=== PATIENT | female | born 1945 | race Caucasian/White ===

== ENCOUNTER 2025-01-01 08:46 | Outpatient (AMB) | payer MEDICARE, MEDICAID, SELFPAY ==
--- NOTE | 2025-01-01 08:56 | MHC.OFFVIS ---
Vital Signs 01/01/25 08:58 Height 5 ft 2 in Weight 150 lb BMI 27.4 BP 116/70 Blood Pressure Location Rt brachial Position Sitting Respiration 16 Pulse 79 Pulse Oximetry (%) 96 Intake Visit Reasons: Memory Issues Accompanied by: Friend Allergies No Known Allergies Allergy (Verified 01/01/25 08:56) Medication List - Last Reconciled 01/01/25 by Michelle Ruiz, PATT chlorthalidone 12.5 mg PO DAILY losartan 50 mg PO DAILY lovastatin 20 mg PO BEDTIME sertraline 25 mg PO DAILY HPI Comments Details: Heidi is a 79-year-old female patient with a past medical history of hyperlipidemia, hypertension, and pulmonary embolism (no longer on anticoagulation) who is being evaluated today for memory concerns. She has accompanied today by her friend Rigo. Heidi reports that she noticed her memory starting to change approximately 5 months ago. Rigo also agrees that over the course of this general time frame, she has been much more forgetful. She gives the example of forgetting upcoming appointments and forgetting where she puts objects. She recently had an MRI at [facility] performed 11/02/2024. The MRI report reflects that there are no acute infarct, mass effect, or intracranial hemorrhage. There was no notable pattern of cerebral volume loss to suggest a specific neurodegenerative process.There is mentioned of mild chronic small-vessel ischemic changes throughout the supratentorial white matter. I do not see any other diagnostics/workup available for review in the referral paperwork. 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 Tobacco: None, never Etoh: None Substance use: None Memory evaluation: Onset of memory changes: Approximately 5 months Rate of progression: Rapid Cognitive: Difficulty remembering upcoming events:Yes, she uses a calendar to help with this Getting lost: No Difficulty keeping track of time: No Difficulty finding appropriate words:No Difficulty making decisions or problem-solving:No Functional: Difficulty writing checks, paying bills: Very little difficulty Difficulty driving a car:No Difficulty shopping alone:No Difficulty performing household tasks:No Difficulty managing own medications:No Difficulty pursuing hobbies/leisure activities:Puzzles. No difficulty Change in gait:No Social activities: Difficulty holding conversation:No Decreased social activity with family/friends:No Less cooperative:No Less aware of others feeling/her full:No Less concerned about bathing/dressing/grooming:No Behavioral: Sad, depressed:Sometimes Anxious, worried:Does feel anxious at times Inpatient, fidgety:No Acts impulsively, disinhibited:No Change appetite or weight: No Change in sleep pattern, daytime fatigue: No, she sleeps about 7-8hrs per night and feels rested in the morning Hallucinations:No PFSH Medical History (Updated 01/01/25 @ 15:17 by Michelle Ruiz CNP) History of anal cancer HLD (hyperlipidemia) Hypertension Memory changes Social History (Updated 01/01/25 @ 08:56 by Judah Austin [facility]) Alcohol intake: never Patient Tobacco Use Status: Never used Tobacco Review of Systems Const Reports as per HPI Physical Exam Exam Exam: MOCA: MOCA total: Executive:07/22 Namin/3 Attention:09/22 Language:04/21 Abstraction:05/21 Delayed recall:04/23 Orientation:09/22 Vital Signs: Last Vital Signs Pulse 79 01/01/25 08:58 Resp 16 01/01/25 08:58 BP 116/70 01/01/25 08:58 Pulse Ox 96 01/01/25 08:58 BMI result Body Mass Index 27.4 Const General: cooperative, healthy appearing, comfortable and no acute distress Nutritional Appearance: average body habitus Orientation/consciousness: oriented to person, oriented to place and oriented to time HEENT Head: Yes normal to inspection Neuro General: oriented to person, oriented to place and oriented to time Cranial nerves: Yes CN's II-XII intact bilaterally Cognition (Neuro): normal cognition Gait exam (Neuro): Normal gait present Motor exam (neuro): 5/5 motor strength present throughout Sensory Exam: double simultaneous stimulation for sensation normal Deep tendon reflexes (DTR's): Rt Biceps (C5, C6): 2+, Left biceps reflex intensity grade: 2+, Right brachioradialis reflex intensity grade: 2+, Left brachioradialis reflex intensity grade: 2+, Right patellar reflex intensity grade: 2+ and Left patellar reflex intensity grade: 2+ Coordination: [id number] test normal Assessment & Plan Assessment & Plan (1) Memory changes: Code(s): R41.3 - Other amnesia Category: Medical Plan: . Omi Heidi is a 79-year-old female patient with a past medical history of hyperlipidemia, hypertension, and pulmonary embolism (no longer on anticoagulation) who is being evaluated today for memory concerns. Memory changes have been notable over the course of the last 5 months. She has no known family history of dementia that she is aware of. Her preliminary workup included an MRI of the brain which showed some mild white matter disease but did not show any significant patterns of atrophy to suggest a neurodegenerative process. While neurodegenerative processes can not fully be excluded, based on her [place] scoring and history, I think it would be reasonable to have her perform an amyloid PET scan. We should 1st however rule out any other reversible cause for memory changes. I have ordered a B12 and TSH level. If these levels returned normal, the next step would be to perform an amyloid PET scan. The patient is aware of this plan and agrees. -labs: TSH level, B12 level -Next step includes amyloid PET scan if labs are within normal range -Follow-up in approximately 2 months after diagnostic testing has been completed Orders: Orders TSH reflex Free T4 Today R41.3 - Other amnesia Vitamin B12 Today R41.3 - Other amnesia Coding Level of Care Code New Pt Level 4 (31967) Diagnoses Memory changes R41.3
[2025-01-01 08:58] VITALS: BP 116/70; PULSE 79; RESP 16; O2SAT 96; BMI 27.4
--- OUTSIDE RECORDS SUMMARY | 2025-01-01 10:02 | XMS_ITS ---
Author Name [facility] Organization Unknown Care Team Organization Name Specialty Phone Email Start Date End Da te [facility] ACO 12/06/2024 [facility] Sherrie Sosa Primary Care 12/24/2022 12/06/2023 [facility] Lacey Garcia MD Primary Care 09/25/2022 12/06/2023 [facility] Termed, PROVIDER Primary Care 02/24/202211/17
--- OUTSIDE RECORDS SUMMARY | 2025-01-01 10:02 | XMS_ITS | Patient Health Record ---
Author Organization [facility] Address [address] [place] [address] Care Team Providers Care Summer Nanny Name Role Phone Lacey Garcia Primary Care Provider Unavaila ble Allergies Allergen (clinical drug ingredient) Drug/Non Drug Allergy documented on EMR Reaction Allergy Type Onset Date Status N.K.D.A (uncoded) Unknown Allergy Ac tive Reason For Referral No Information Medications Medication SIG (Take, Route, Frequency, Duration) Notes Start Date End Date Status Ketoconazole 2 % apply to affected toenail Externally Once a day; Duration: 30 days 08/28/2021 Active Calcium + D daily Not-Taki ng Lovastatin 20 MG 1 tablet with the evening meal Orally Once a day Active Chlorthalidone 25 MG 0.5 tablet in the morning with food Orally Once a day Active Tinactin 1 % 1 application Externally Once a day; Duration: 30 days Active Losartan Potassium 50 MG 1 tablet Orally Once a day Active Fish Oil 1000 MG 1 capsule Orally Twi ce a day Active Viactiv Active Imodium Multi-Symptom Relief 2-125 MG as directed Orally prn Active Probiotic - as directed Orally Active Problems Problem Type SNOMED Code ICD Code Onset Dates Problem Status W/U Status Risk Notes Problem Diabetic renal disease (082700398) Type 2 diabetes mellitus with diabetic chronic kidney disease (E11.22) Active confirmed Problem Acquired hallux rigidus (7953054) Hallux rigidus, right foot (M20.21) Active confirmed Problem Acquired hallux rigidus (4774339) Hallux rigidus, left foot (M20.22) Active confirmed Problem Chronic kidney disease stage 2 (034964923) Chronic kidney disease, stage 2 (mild) (N18.2) Active confirmed Plan Of Treatment No Information Insurance Providers Payer Name Payer Address Payer Phone Subscriber Number Group Number Insured Name Patient Relationship to Insured Coverage Start Date Coverage End Date Medicare of [place] [address] [place] [phone] [id number] Heidi Whitman Self - patient is the insured [employer] [address] [place] [phone] [id number] Heidi Whitman Self - patient is the insured Medical (General) History Medical History History ICD Code diabetes mellitus 2 with renal manifesta tions phlebitis deviated septum breast mass left shoulder pain history of anal cancer nehprolithiasis herniated lumbar intervertebral disc radiculopathy osteopenia utuerine bleeding dyspepsia microalbuminuria hyperlipidemia reactive airway disease pulmonary nodule adjustment disorder history of basal cell carcinoma essential hypertension diverticulosis tubular adenoma of colon varicose veins with pain Surgical History Surgery Date(Month/Year) anal cancer rotated cuff surgery implant left butt cheek 1962 1963 1965 Hospitalization History Reason Date(Month/Year) (boy) 1965 (boy) 1963 (boy) 1962
--- OUTSIDE RECORDS SUMMARY | 2025-01-01 10:02 | XMS_ITS | Clinical Summary ---
Author Organization [facility] [address] [place] [address] [place] [phone] Phone Care Team Providers Care Day Care Aide Name Role Phone Lacey Garcia MD Primary Care Provider Allergies No known active allergies Medications albuterol HFA (PROAIR HFA ; PROVENTIL HFA ; VENTOLIN HFA) 90 mcg/actuation inhaler Inhale 2 puffs by mouth. 02/15/20 24 Active cholecalciferol (VITAMIN D-3) 50 mcg (2,000 unit) capsule Take 1 capsule (2,000 Units total) by mouth 1 (one) time each day. 02/11/20 24 Active omega-3 acid ethyl esters (LOVAZA) 1 gram capsule Take 1 capsule (1 g total) by mouth 2 (two) times a day. Active L.acidoph,plant -B.animal,long (Probiotic Acidophilus Beads) 2 billion cell capsule Take 1 capsule by mouth 1 (one) time each day. 08/19/19 22 Active loperamide (IMODIUM) 2 mg capsule Take 1 capsule (2 mg total) by mouth 4 (four) times a day if needed for diarrhea. 08/19/19 22 Active inhalational spacing device (BreatheRite Valved MDI Chamber) inhaler 1 Device by Other route 1 (one) time if needed (with inhalers). 01/11/20 24 Active Advair HFA 45-21 mcg/actuation inhalerIndicati ons:Mild intermittent asthma, uncomplicated,C hronic obstructive pulmonary disease, unspecified (CMS/HCC V24, CMS/HCC V28) Inhale 1 puff by mouth 2 (two) times a day. Rinse mouth with water after use to reduce aftertaste and incidence of candidiasis. Do not swallow. 12 each 5 09/12/19 25 2024 Active naproxen (NAPROSYN) 500 mg tablet TAKE 1 TABLET BY MOUTH TWICE A DAY WITH MEALS 60 tablet 10/28/19 Active Additional Information Patient not taking.Reported on 12/07/2024 lidocaine (LIDODERM) 5 % patchIndication s:Sciatica of right side Apply 1 patch topically 1 (one) time each day. Remove & discard patch within 12 hours or as directed by MD. 30 each 12/16/19 25 2024 Active diclofenac (VOLTAREN) 1 % topical gel Apply 4 g topically 2 (two) times a day. 200 g 12/16/19 25 Active chlorthalidone (HYGROTON) 25 mg tabletIndicatio ns:Essential (primary) hypertension TAKE 1/2 TABLET BY MOUTH DAILY 45 tablet 12/23/19 25 Active lovastatin (MEVACOR) 20 mg tablet TAKE 1 TABLET BY MOUTH EVERYDAY AT BEDTIME 90 tablet 12/23/19 25 Active losartan (COZAAR) 50 mg tablet TAKE 1 TABLET BY MOUTH EVERY DAY 90 tablet 12/23/19 25 Active sertraline (ZOLOFT) 25 mg tablet Take 1 tablet (25 mg total) by mouth 1 (one) time each day. 90 tablet 12/23/19 25 2024 Active chlorthalidone (HYGROTON) 25 mg tabletIndicatio ns:Essential (primary) hypertension TAKE 1/2 TABLET BY MOUTH DAILY 45 tablet 09/22/19 25 2024 Discontinued lovastatin (MEVACOR) 20 mg tablet TAKE 1 TABLET BY MOUTH EVERYDAY AT BEDTIME 90 tablet 09/22/19 25 2024 Discontinued losartan (COZAAR) 50 mg tablet Take 1 tablet (50 mg total) by mouth 1 (one) time each day. 90 tablet 09/22/19 25 2024 Discontinued sertraline (ZOLOFT) 25 mg tablet Take 1 tablet (25 mg total) by mouth 1 (one) time each day. 30 each 3 09/26/19 25 2024 Discontinued(R eorder) Active Problems Problem Noted Date Diagnosed Date Full code status 10/30/2024 Hyperlipidemia 08/09/2024 Benign hypertension 08/09/2024 History of pulmonary embolus (PE) 08/09/2024 Encounters Date Type Department Care Team Description 12/15/2024 5:11 PM EDT - 12/16/2024 2:[address] [facility] [address] [place] [phone] Jordan Alexander MD Goebel, Mathew, MD Muhoozi, Bannet, MD Sciatica of right side Discharge Disposition: Home or Self Care 12/14/2024 Telephone Adult Medicine [address] [phone] Lacey Garcia MD 12/07/2024 8:00 AM EDT Office Visit Adult [address] [phone] Pantera Valdes PA Skin mole (Primary Dx); Skin lesion; Benign hypertension 11/29/2024 11:36 AM EDT - 11/29/2024 11:49 AM EDT [address] [phone] Kleber Nolan MD Right hip pain (Primary Dx) Discharge Disposition: Home or Self Care 11/20/2024 10:15 AM EDT Office Visit Orthopedic Surgery [facility] [address] [place] [phone] Rogers Lance, DPM Chronic gout of left foot, unspecified cause (Primary Dx); Dermatophytosis of nail; Arthritis of left ankle; Follow-up exam 11/12/2024 8:50 PM EDT - 11/12/2024 9:[address] [facility] [address] [place] [phone] Abrasion of right cornea, initial encounter (Primary Dx) Discharge Disposition: Home or Self Care 11/02/2024 9:40 AM EDT - 11/02/2024 11:59 PM EDT Hospital Encounter [facility] MRI [address] [place] [phone] Mild cognitive impairment; Benign hypertension; Hyperlipidemia, unspecified hyperlipidemia type; Anxiety Discharge Disposition: Home or Self Care 10/30/2024 10:00 AM EDT Office Visit Adult Medicine [facility] [address] [place] [phone] Lacey Garcia MD Mild cognitive impairment (Primary Dx); Benign hypertension; Hyperlipidemia, unspecified hyperlipidemia type; Anxiety; Full code status; Advance care planning 10/23/2024 Telephone Adult [facility] [address] [place] [phone] Lacey Garcia MD 10/03/2024 1:45 PM EDT Office Visit Orthopedic Surgery - [place] [address] [facility] [address] [place] [phone] Rogers Lance DPM Chronic gout of left foot, unspecified cause (Primary Dx); Arthritis of left ankle; Dermatophytosis of nail; Difficulty walking; Primary osteoarthritis of both feet; Pain in toe of left foot; Pain in toe of right foot from Last 3 Months Immunizations Name Administration Dates Next Due Influenza Quadravalent, 0.5m l (Fluzone High-dose) 65yo and older 01/20/2024,02/04/2023 Influenza Quadravalent, MDCK , 0.5ml, with preservative (Flucelvax) 6mo and older 02/28/2017 Influenza trivalent, 0.5mL ( Fluzone High-dose) 65yo and older 01/20/2024,02/02/2022,01/22/2021,01/24,01/18/2019,01/17/2018,01/14/2016 Influenza trivalent, with pr eservative (Fluzone; Afluria) 6mo and older 02/03/2015,01/26/2014,03/10/2013,01/26 Moderna SARS-CoV-2 COVID-19, mRNA, LNP-S, preservative free 02/10/2021 Pneumococcal conjugate 13 va lent (Prevnar 13, PCV13) 2mo and older 06/17/2015 Pneumococcal conjugate 20 va lent (Prevnar 20, PCV 20) 2mo and older 05/25/2023 Pneumococcal polysaccharide 23 valent (Pneumovax 23) 2yo and older 12/02/2012,01/26/2010 RSV, bivalent, protein subun it RSVpreF, 0.5mL, Preservative Free (Arexvy) 60yo and older 12/12/2022 Tdap Tetanus diptheria acell ular pertussis (Boostrix; Adacel) 7yo and older 10/08/2023,11/30/2012,12/28/2011 Zoster Live 11/30/2012,12/28/2011 Zoster recombinant (Shingrix ) 19yo and older 03/25/2023,01/09/2023 Surgical History Surgery Date Site/Laterality Comments OTHER SURGICAL HISTORY PROCEDURE: MOHS' CHEMOSURGERY, ADD'L SPECIMENS; COMMENT: hx BCC, nose. OTHER SURGICAL HISTORY Bilateral PROCEDURE: HISTORY OTHER; COMMENT: TopVisibleTRONIC sacral implant- ok to have MRI but needs to have battery shut off Medical History Medical History Date Comments Phlebitis 06/02/2012 DX:Phlebitis Deviated septum 06/02/2012 DX:Deviated sept um Nephrolithiasis 06/02/2012 DX:Nephrolithias is Herniated lumbar intervertebral disc 06/02/2012 DX:Herniated lumbar intervertebral disc Osteopenia 08/30/2012 DX:Osteopenia Uterine bleeding 08/30/2012 DX:Uterine blee ding Dyspepsia 11/30/2012 DX:Dyspepsia Hyperlipidemia 06/12/2013 DX:Hyperlipidemi a Reactive airway disease 09/12/2013 DX:React louisa airway disease Hematuria 07/29/2016 DX:Hematuria Pulmonary nodule 08/26/2016 DX:Pulmonary no dule Essential hypertension 12/06/2017 DX:Essent ial hypertension Colon, diverticulosis 01/17/2018 DX:Colon, diverticulosis Microalbuminuria 11/24/2018 DX:Microalbumin uria Type 2 diabetes mellitus wit h renal manifestations (CMS/HCC V24, CMS/HCC V28) 06/02/2012 DX: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) History of anal cancer 06/02/2012 DX:Histor y of anal cancer Varicose veins with pain 02/21/2018 DX:Vari cose veins with pain History of basal cell carcinoma (BCC) 07/07/2017 DX:History of basal cell carcinoma (BCC); COMMENT: Tip of nose - nodular - [facility] upper chest - nodular - [facility] Family History Medical History Relation Name Comments Heart attack Brother 1 Stomach cancer Brother 2 skin ca Diabetes Son Relation Name Status Comments Brother 1 Brother 2 Son Social History Tobacco Use Types Packs/Day Years Used Date Smoking Tobacco: Never Smokeless Tobacco: Never Tobacco Cessation:Counseling Given: Not Answered Alcohol Use Standard Drinks/Week Comments No 0 (1 standard drink = 0.6 oz pur e alcohol) Comments No Sex and Gender Information Value Date Recorded Sex Assigned at Not on file Legal Sex Female 10:44 AM EST Gender Identity Not on file Sexual Orientation Not on file Obstetrics History Last Filed Vital Signs Vital Sign Reading Time Taken Comments Blood Pressure 123/61 12/16/2024 6:34 AM EDT Pulse 62 12/16/2024 6:34 AM EDT Temperature 36.7 C (98.1 F) 12/16/2024 6:34 AM EDT Respiratory Rate 18 12/16/2024 6:34 AM EDT Oxygen Saturation 96% 12/16/2024 6:34 AM EDT Inhaled Oxygen Concentration - - Weight 68 kg (150 lb) 12/15/2024 5:15 PM EDT Height 160 cm (5' 3 ) 12/15/2024 5:15 PM EDT Body Mass Index 26.57 12/15/2024 5:15 PM EDT Plan of Treatment Upcoming Encounters Date Type Department Care Team (Late st Contact Info) Description 01/17/2025 10:30 AM EDT Evaluation [facility] [address] [facility] [address] [place] [phone] Felix Dye, ZULLY 01/24/2025 9:30 AM EDT Office Visit Orthopedic Surgery - [place] 250 [address] [facility] 250 [place] [phone] Rogers Lance DPM 175 [facility] 250 [place] [phone] 03/05/2025 10:30 AM EST Office Visit Adult Medicine - [place] 230 [place] [phone] Pantera Valdes PA 230 [place] [address] 03/12/2025 11:00 AM EST Office Visit Pulmonolgy [facility] [address] [place] [phone] Sherrie Sosa NP [address] [place] [phone] Health Maintenance Due Date Last Done Comments Diabetes: Annual Foot Exam 1955 Diabetes: Annual Retina Eye Exam 1955 Cervical Cancer Screening: HPV 1966 Cholesterol Screening (Lipid Panel) 03/28/2022 Colorectal Cancer Screening: Colonoscopy 03/28/2022 Falls Risk Assessment 03/28/2022 Hepatitis C Screening 03/28/2022 Medicare Annual Wellness Visit 03/28/2022 Osteoporosis Screening (Bone Density Screening) 03/28/2022 Social Influencers of Health Screening 03/28/2022 Diabetes: Annual Urine Albumin-Creatinine Ratio (uACR) 03/01/2024 Diabetes: Blood Sugar Control Test (HGBA1C) 03/01/2024 Depression Screening 04/19/2024 COVID-19 Vaccine (7 - Moderna risk season) 2024 01/20/2024, 02/18/2022, 07/25/2021, Additional history exists Influenza Vaccine (#1) 2024 , 01/20/2024, 02/04/2023, Additional history exists Diabetes: Annual GFR (Glomerular Filtration Rate) 12/15/2025 12/15/2024, 08/26/2024 Hypertension/CHF/CAD Annual BMP Blood Test 12/15/2025 12/15/2024, 08/26/2024 DTaP,Tdap,and Td Vaccines (4 - Td or Tdap) 10/07/2033 10/08/2023, 11/30/2012, 12/28/2011 RSV Immunization Adult Patients Completed 12/12/2022 Zoster Vaccines Completed 03/25/2023, 12/19, 11/30/2012, Additional history exists Pneumococcal Vaccine: 50+ Years Completed 05/25/2023, 06/17/2015, 12/02/2012, Additional history exists HIB Vaccines Aged Out No longer eligi ble based on patient's age to complete this topic HPV Vaccines Aged Out No longer eligi ble based on patient's age to complete this topic Hepatitis A Vaccines Aged Out No long er eligible based on patient's age to complete this topic Hepatitis B Vaccines Aged Out No long er eligible based on patient's age to complete this topic IPV Vaccines Aged Out No longer eligi ble based on patient's age to complete this topic MMR Vaccines Aged Out No longer eligi ble based on patient's age to complete this topic Meningococcal ACWY Vaccine Aged Out N o longer eligible based on patient's age to complete this topic Meningococcal B Vaccine Aged Out No l onger eligible based on patient's age to complete this topic RSV Immunization Patients Under 20 months Aged Out No longer eligible based on patient's age to complete this topic Varicella Vaccines Aged Out No longer eligible based on patient's age to complete this topic Procedures Procedure Name Priority Date/Time Associated Diagnosis Comments CBC WITH AUTO DIFFERENTIAL STAT 12/15/2024 10:11 PM EDT COMPREHENSIVE METABOLIC PANEL STAT 12/15/2024 10:11 PM EDT CBC AND DIFFERENTIAL STAT 12/15/2024 10:11 PM EDT XR HIP 2-3 VIEWS RIGHT STAT 12/15/2024 7:[address] LUMBAR SPINE WO CONTRAST STAT 12/15/2024 7:34 PM EDT XR HIP 2-3 VIEWS RIGHT STAT 11/29/2024 10:36 AM EDT XR FOOT 3+ VIEWS LEFT Routine 11/20/2024 10:22 AM EDT Follow-up exam MR BRAIN WO CONTRAST Routine 11/02/2024 11:39 AM EDT Mild cognitive impairment Benign hypertension Hyperlipidemia, unspecified hyperlipidemia type Anxiety INJECTION TENDON OR LIGAMENT Routine 10/03/2024 1:45 PM EDT Chronic gout of left foot, unspecified cause from Last 3 Months Results * (ABNORMAL) CBC auto differential (12/15/2024 10:11 PM EDT) WBC 6.9 4.8 - 10.8 K/mcL LAB H[facility] RBC 3.60(L) 3.80 - 4.80 M/mcL LAB HEMETOLOGY METHOD [facility] Hemoglobin 10.5(L) 11.5 - 16.0 g/dL LAB HEMETOLOGY METHOD 12/15/2024 10:21 PM [facility] Hematocrit 31.7(L) 35.0 - 47.0 % LAB HEMETOLOGY METHOD 12/15/2024 10[facility] MCV 88.3 79.0 - 98.0 FL LAB HEMETOLOGY METHOD 12/15/2024 10[facility] MCH 29.2 27.0 - 32.0 pcg LAB HEMETOLOGY METHOD 12/15/2024 10:21 PM [facility] MCHC 33.1 32.0 - 37.0 g/dL LAB HEMETOLOGY METHOD 12/15/2024 10:21 PM [facility] RDW 12.9 11.0 - 15.0 % LAB HEMETOLOGY METHOD 12/15/2024 10:[facility] Platelets 205 130 - 400 K/mcL LAB HEMETOLOGY METHOD 12/15/2024 10:21 PM [facility] MPV 9.9 7.0 - 11.0 FL LAB HEMETOLOGY METHOD 12/15/2024 10:21 PM [facility] NRBC 0.0 <1.0 % LAB HEMETOLOGY METHOD 12/15/2024 10:21 PM [facility] NRBC Absolute 0.00 <0.10 K/mcL LAB HEMETOLOGY METHOD 12/15/2024 10:21 PM [facility] Neutrophils Relative 61.6 % LAB HEMETOLOGY METHOD 12/15/2024 10:21 PM [facility] Lymphocytes Relative 25.5 % LAB HEMETOLOGY METHOD 12/15/2024 10:21 PM [facility] Monocytes Relative 9.6 % LAB HEMETOLOGY METHOD 12/15/2024 10:21 PM [facility] Eosinophils Relative 2.3 % LAB HEMETOLOGY METHOD 12/15/2024 10:21 PM [facility] Basophils Relative 0.6 % LAB HEMETOLOGY METHOD 12/15/2024 10:21 PM [facility] Immature Granulocytes Relative 0.4 % LAB HEMETOLOGY METHOD 12/15/2024 10:21 PM [facility] Neutrophils Absolute 4.26 1.50 - 7.00 K/mcL LAB HEMETOLOGY METHOD 12/15/2024 10:21 PM [facility] Lymphocytes Absolute 1.76 1.00 - 5.00 K/mcL LAB HEMETOLOGY METHOD 12/15/2024 10:21 PM [facility] Monocytes Absolute 0.66 0.20 - 1.00 K/mcL LAB HEMETOLOGY METHOD 12/15/2024 10:21 PM [facility] Eosinophils Absolute 0.16 0.00 - 0.50 K/mcL LAB HEMETOLOGY METHOD 12/15/2024 10:21 PM [facility] Basophils Absolute 0.04 0.00 - 0.20 K/mcL LAB HEMETOLOGY METHOD 12/15/2024 10:21 PM T [facility] Immature Granulocytes Absolute 0.03 0.00 - 0.03 K/mcL LAB HEMETOLOGY METHOD 12/15/2024 10:21 PM [facility] Blood Venous blood specimen / Unknown Venipuncture / Unknown 12/15/2024 10:11 PM EDT 12/15/2024 10:16 PM EDT us Jordan Alexander MD LAB BLOOD ORDERABLES Final Result [facility] [address] [place] [address], * (ABNORMAL) Comprehensive Metabolic Panel (CMP) (12/15/2024 10:11 PM EDT) Sodium 141 133 - 145 mmol/L LAB CHEMISTRY METHOD 12/15/2024 10:39 PM [facility] Potassium 3.4(L) 3.5 - 5.5 mmol/L LAB CHEMISTRY METHOD 12/15/2024 10:39 PM [facility] Chloride 109 96 - 110 mmol/L LAB CHEMISTRY METHOD 12/15/2024 10:39 PM [facility] CO2 27 21 - 32 mmol/L LAB CHEMISTRY METHOD 12/15/2024 10:39 PM [facility] Anion Gap 5 3 - 11 LAB CHEMISTRY METHOD 12/15/2024 10:39 PM [facility] Glucose 109(H) 70 - 100 mg/dL LAB CHEMISTRY METHOD 12/15/2024 10:39 PM [facility] BUN 15 5 - 25 mg/dL LAB CHEMISTRY METHOD 12/15/2024 10:39 PM [facility] Creatinine 0.60 0.50 - 1.10 mg/dL LAB CHEMISTRY METHOD 12/15/2024 10:39 PM [facility] eGFR 91 >=60 mL/min/1. 73m2 LAB CHEMISTRY METHOD 12/15/2024 10:39 PM [facility] Comment:Calculation based on the Chronic Kidney Disease Epidemiology Collaboration (CKD-EPI) equation refit without adjustment for race. BUN/Creatinine Ratio 25.0 LAB CHEMISTRY METHOD 12/15/2024 10:39 PM [facility] Calcium 8.4(L) 8.5 - 10.5 mg/dL LAB CHEMISTRY METHOD 12/15/2024 10:39 PM [facility] AST (SGOT) 16 10 - 42 unit/L LAB CHEMISTRY METHOD 12/15/2024 10:39 PM [facility] ALT (SGPT) 14 10 - 60 unit/L LAB CHEMISTRY METHOD 12/15/2024 10:39 PM [facility] Alkaline Phosphatase 74 42 - 121 unit/L LAB CHEMISTRY METHOD 12/15/2024 10:39 PM [facility] Total Protein 6.3 6.0 - 8.0 g/dL LAB CHEMISTRY METHOD 12/15/2024 10:39 PM [facility] Albumin 3.1(L) 3.2 - 5.0 g/dL LAB CHEMISTRY METHOD 12/15/2024 10:39 PM [facility] Total Bilirubin 0.4 0.0 - 1.4 mg/dL LAB CHEMISTRY METHOD 12/15/2024 10:39 PM [facility] Blood Venous blood specimen / Unknown Venipuncture / Unknown 12/15/2024 10:11 PM EDT 12/15/2024 10:16 PM EDT us Jordan Alexander MD LAB BLOOD ORDERABLES Final Result [facility] [address] [place] [address], * XR Hip 2-3 Views Right (12/15/2024 7:48 PM EDT) Only the most recent of2 resultswithin the time period is included. Anatomical Region Laterality Modality Lower Extremities, Hip Right Radiograp hic Imaging 12/16/2024 8:48 AM EDT Impressions 12/16/2024 8:52 AM EDT No acute fracture or subluxation. If the patient has persistent unexplained symptoms MRI or radionuclide bone scanning may be of some value. -------- FINAL REPORT -------- Dictated By: Madi Elias Dictated Date: 12/16/2024 08:48 ET Assigned Physician: Madi Elias Reviewed and Electronically Signed By: Madi Elias Signed Date: 12/16/2024 08:52 ET Workstation ID: [id number] Transcribed By: Self Edit Transcribed Date: 12/16/2024 08:48 ET Narrative 12/16/2024 8:52 AM EDT EXAMINATION: PELVIS RIGHT HIP CLINICAL INFORMATION: Pain. COMPARISON: 11/29/24 TECHNIQUE: Frontal view of the pelvis 2 views right hip FINDINGS: A power generator projects over the lower quadrant with a lead projecting through the region of one of the sacral neural foramina. No disruption of the SI joints, hips or symphysis. No acute pelvic fracture demonstrated. No suspicious pelvic mass or collection. Ossification adjacent to the left ischial tuberosity is unchanged and is likely related to remote injury. Right hip: The alignment is normal. No acute fracture. Femoral head contour is smooth. There are some degenerative changes with spurring of the greater trochanter. Procedure Note Madi Elias MD - 12/16/2024 EXAMINATION: PELVIS RIGHT HIP CLINICAL INFORMATION: Pain. COMPARISON: 11/29/24 TECHNIQUE: Frontal view of the pelvis 2 views right hip FINDINGS: A power generator projects over the lower quadrant with a lead projectingthrough the region of one of the sacral neural foramina. No disruption of the SI joints, hips or symphysis. No acute pelvic fracture demonstrated. No suspicious pelvic mass or collection. Ossification adjacent to the left ischial tuberosity is unchanged and islikely related to remote injury. Right hip: The alignment is normal. No acute fracture. Femoral head contour issmooth. There are some degenerative changes with spurring of the greatertrochanter. IMPRESSION: No acute fracture or subluxation. If the patient has persistent unexplained symptoms MRI or radionuclidebone scanning may be of some value. -------- FINAL REPORT -------- Dictated By: Madi Elias Dictated Date: 12/16/2024 08:48 ET Assigned Physician: Madi Elias Reviewed and Electronically Signed By: Madi Elias Signed Date: 12/16/2024 08:52 ET Workstation ID: [id number] Transcribed By: Self Edit Transcribed Date: 12/16/2024 08:48 ET us Jordan Alexander MD IMG XR PROCEDURES Final Res ult * CT Lumbar Spine wo Contrast (12/15/2024 7:34 PM EDT) Anatomical Region Laterality Modality Spine, L-spine Computed Tomogra phy 12/15/2024 8:13 PM EDT Impressions 12/15/2024 8:13 PM EDT 1. No acute osseous or alignment abnormality of the lumbar spine. 2. Grade 1 anterolisthesis of L4 on L5, degenerative. 3. Tbgh-qi-[id number] multilevel spondylosis. 4. Osteopenia. This document has been electronically signed by: Paddy Chen MD on 12/15/2024 20:13:34 Narrative 12/15/2024 8:13 PM EDT INDICATION: Low back pain, no red flags CT lumbar spine without contrast. COMPARISON: None provided. FINDINGS: Osteopenia. Sacral stimulator leads enter the sacrum on the left. Grade 1 anterolisthesis of L4 on L5, degenerative. Vertebral body heights are maintained. No evidence of acute vertebral body injury. Partially visualized colonic diverticulosis without evidence of diverticulitis in the visualized portions. L5-S1: Loss of disc space height. Facet joint arthrosis. Mild bilateral neural foraminal narrowing. L4-L5: Mild posterior disc uncovering. Facet joint arthrosis. Moderate right and jaas-cg-[id number] left neural foraminal narrowing. L3-L4: Mild posterior disc bulge. Facet joint arthrosis. Mild bilateral neural foraminal narrowing. L2-L3: Mild posterior disc bulge. Facet joint arthrosis. L1-L2: Intervertebral disc is normal in height. No significant disc bulge or central canal stenosis. Procedure Note Paddy Chen MD - 12/15/2024 INDICATION: Low back pain, no red flags CT lumbar spine without contrast. COMPARISON: None provided. FINDINGS: Osteopenia. Sacral stimulator leads enter the sacrum on the left. Grade 1 anterolisthesis of L4 on L5, degenerative. Vertebral body heights are maintained. No evidence of acute vertebralbody injury. Partially visualized colonic diverticulosis without evidence of diverticulitis in the visualized portions. L5-S1: Loss of disc space height. Facet joint arthrosis. Mild bilateral neural foraminal narrowing. L4-L5: Mild posterior disc uncovering. Facet joint arthrosis. Moderate right and maak-fk-bbkdzleq left neural foraminal narrowing. L3-L4: Mild posterior disc bulge. Facet joint arthrosis. Mild bilateral neural foraminal narrowing. L2-L3: Mild posterior disc bulge. Facet joint arthrosis. L1-L2: Intervertebral disc is normal in height. No significant discbulge or central canal stenosis. IMPRESSION: 1. No acute osseous or alignment abnormality of the lumbar spine. 2. Grade 1 anterolisthesis of L4 on L5, degenerative. 3. Kwog-iz-rkuaguqs multilevel spondylosis. 4. Osteopenia. This document has been electronically signed by: Paddy Chen MD on 12/15/2024 20:13:34 Jordan Alexander MD IMG CT PROCEDURES Final Res ult * XR Foot 3+ Views Left (11/20/2024 10:22 AM EDT) Anatomical Region Laterality Modality Lower Extremities, Foot Left Computed Radiography Narrative 11/20/2024 11:45 AM EDT Left foot 3 views No fracture. No radiopaque foreign Short fourth metatarsal noted hammertoe contractures lesser digit noted Rogers Lance DPM IMG XR PROCEDURES Final R esult * MR Brain wo Contrast (11/02/2024 11:39 AM EDT) Anatomical Region Laterality Modality Head and Neck Magnetic Resonan ce 11/02/2024 2:02 PM EDT Impressions 11/02/2024 2:05 PM EDT No acute infarct, mass effect, or intracranial hemorrhage. No pattern of cerebral volume loss to suggest a specific neurodegenerative process. Mild chronic small vessel ischemic changes throughout the supratentorial white matter -------- FINAL REPORT -------- Dictated By: MONTY GUNDERSON Dictated Date: 11/02/2024 14:02 ET Assigned Physician: MONTY GUNDERSON Reviewed and Electronically Signed By: MONTY GUNDERSON Signed Date: 11/02/2024 14:05 ET Workstation ID: [id number] Transcribed By: Self Edit Transcribed Date: 11/02/2024 14:02 ET Narrative 11/02/2024 2:05 PM EDT PROCEDURE: Brain MRI INDICATION: Mild cognitive impairment TECHNIQUE: Multiplanar, multisequence MRI of the brain Without contrast. COMPARISON: 08/26/2024 CTA FINDINGS: No acute infarct, mass effect, or intracranial hemorrhage. Mild chronic small vessel ischemic changes seen throughout the supratentorial white matter. Sella and foramen magnum are normal. No abnormal intracranial susceptibility artifact. Ventricles, sulci, and cisterns are normal in size and configuration. No hydrocephalus. Major intracranial arterial flow voids are normal. Intracranial arterial vasculature is better assessed on prior CTA. Left maxillary sinus retention cyst. Remainder the sinuses and mastoid air cells are clear. Bilateral lens implants. Orbits and superficial soft tissues are otherwise within normal limits. Calvarium is normal. Procedure Note Monty Gunderson MD - 11/02/2024 PROCEDURE: Brain MRI INDICATION: Mild cognitive impairment TECHNIQUE: Multiplanar, multisequence MRI of the brain Without contrast. COMPARISON: 08/26/2024 CTA FINDINGS: No acute infarct, mass effect, or intracranial hemorrhage. Mild chronic small vessel ischemic changes seen throughout thesupratentorial white matter. Sella and foramen magnum are normal. No abnormal intracranialsusceptibility artifact. Ventricles, sulci, and cisterns are normal in size and configuration. Nohydrocephalus. Major intracranial arterial flow voids are normal. Intracranial arterialvasculature is better assessed on prior CTA. Left maxillary sinus retention cyst. Remainder the sinuses and mastoidair cells are clear. Bilateral lens implants. Orbits and superficial soft tissues areotherwise within normal limits. Calvarium is normal. IMPRESSION: No acute infarct, mass effect, or intracranial hemorrhage. No pattern of cerebral volume loss to suggest a specific neurodegenerativeprocess. Mild chronic small vessel ischemic changes throughout the supratentorialwhite matter -------- FINAL REPORT -------- Dictated By: MONTY GUNDERSON Dictated Date: 11/02/2024 14:02 ET Assigned Physician: MONTY GUNDERSON Reviewed and Electronically Signed By: MONTY GUNDERSON Signed Date: 11/02/2024 14:05 ET Workstation ID: [id number] Transcribed By: Self Edit Transcribed Date: 11/02/2024 14:02 ET Lacey Garcia MD IMG MRI PROCEDURES Fin al Result * Injection tendon or ligament (10/03/2024 1:45 PM EDT) Rogers Hare DPM - 10/03/2024 1:45 PM EDT Rogers Lnace DPM 10/03/2024 5:41 PM Injection tendon or ligament Indications: pain Details: 25 G needle Medications: 0.5 mL lidocaine (PF) 1 %; 20 mg triamcinolone acetonide 40 mg/mL Informed Consent: Site: Foot ligament tendon Rogers Lance DPM IN CLINIC/BEDSIDE ORDERAB LES Final Result from Last 3 Months Insurance MEDICARE MEDICAID - [place] Advance Directives Documents on File Type Date Recorded 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 Advance Directives and Living Will 10/30/2024 10:58 AM MOLST Advance Directives and Living Will 10/30/2024 10:52 AM Molst 10/30/2024 Advance Directives and Living Will 10/30/2024 10:51 AM Proxy 10/30/2024 Health Care Decision (hx) 07/31/2022 AD RAMIREZ DIRECTIVE Health Care Decision (hx) 05/19/2021 AD RAMIREZ DIRECTIVE Health Care Decision (hx) 08/07/2020 AD RAMIREZ DIRECTIVE Health Care Decision (hx) 08/07/2020 AD RAMIREZ DIRECTIVE Health Care Decision (hx) 08/07/2020 AD RAMIREZ DIRECTIVE Health Care Decision (hx) 08/07/2020 AD RAMIREZ DIRECTIVE Health Care Decision (hx) 08/07/2020 AD RAMIREZ DIRECTIVE Health Care Decision (hx) 08/07/2020 AD RAMIREZ DIRECTIVE Health Care Decision (hx) 08/07/2020 AD RAMIREZ DIRECTIVE * Full Code - Confirmed (Latest Code Status on File) Date Activated Date Inactivated Comments 12/15/2024 9:05 PM 12/16/2024 4:[address] atus was ascertained in the following way: Code status discussion: discussion with patient To update the patient's code status, place a code status order. Do not modify or discontinue any currently active code status orders. Care Teams Day Care Aide Relationship Specialty Start Date End Date Lacey Garcia MD [address] [place] [address] PCP - General Internal Medicine 08/04/21
--- OUTSIDE RECORDS SUMMARY | 2025-01-01 10:02 | XMS_ITS | Encounter Summary ---
Author Organization [facility] Address [address] [place] [address] Care Team Providers Care Sales Promotion Director Name Role Phone Lacey Garcia MD Primary Care Provider Reason for Visit * Reason Onset Date Comments call from doctors office 12/14/2024 Encounter Details Date Type Department Care Team ([facility] st Contact Info) Description 12/14/2024 Telephone Adult Medicine - [address] [phone] Lacey Garcia MD [address] [place], [place] [phone] Social History Tobacco Use Types Packs/Day Years Used Date Smoking Tobacco: Never Smokeless Tobacco: Never Alcohol Use Standard Drinks/Week Comments No 0 (1 standard drink = 0.6 oz pur e alcohol) Comments No Sex and Gender Information Value Date Recorded Sex Assigned at Not on file Legal Sex Female 10:44 AM EST Gender Identity Not on file Sexual Orientation Not on file documented as of this encounter Progress Notes * Dariel Bacon RN - 12/21/2024 8:16 AM EDT Left message for pt to please return our call * Dariel Bacon RN - 12/14/2024 1:13 PM EDT Left message for pt to please return our call * Zeus Bryan - 12/14/2024 12:58 PM EDT Riddhi, nurse calling from [facility], states pt was supposed to be seen 12/11/24 for a visit but the provider was out. Has not rescheduled yet due to the providers schedule, but there are safety concerns about the pt's wellbeing at home. Would like to discuss this with someone. documented in this encounter Plan of Treatment Upcoming Encounters Date Type Department Care Team (Late st Contact Info) Description 01/17/2025 10:30 AM EDT Evaluation [facility] Outpatient Rehabilitation - [place] 175 [facility] 350 [place] [phone] Felix Dye, ZULLY 01/24/2025 9:30 AM EDT Office Visit Orthopedic Surgery - [place] 250 175 [facility] 250 [place] [phone] Rogers Lance, DPM 175 [facility] 250 [place] [phone] 03/05/2025 10:30 AM EST Office Visit Adult Medicine - [place] 230 [place] [phone] Pantera Valdes PA [address] [place] [address] 03/12/2025 11:00 AM EST Office Visit Pulmonolgy - [place] 175 [facility] 200 [place] [phone] Sherrie Sosa NP [address] [place] [phone] documented as of this encounter Visit Diagnoses Not on filedocumented in this encounter Care Teams Sales Promotion Director Relationship Specialty Start Date End Date Lacey Garcia MD [address] [place] [phone] PCP - General Internal Medicine 08/04/21 documented as of this encounter
== END 2025-01-01 10:00 | disposition home or self-care (01) ==
LOC: HO.HSM 08:47
PROVIDERS: PCP Family Medicine; Visit Provider Nurse Practitioner
DX: R41.3 Other amnesia (principal)
CPT/HCPCS: 99204

== ENCOUNTER → 2025-01-01 08:46 | Outpatient (BNVA) | payer MEDICARE, MEDICAID, SELFPAY | PROVIDERS: PCP Family Medicine; Visit Provider Nurse Practitioner | DX: R41.3 Other amnesia (principal) | CPT/HCPCS: 99202 ==

== ENCOUNTER 2025-01-02 13:32 | Outpatient (REF) | payer MEDICARE, MEDICAID, SELFPAY ==
--- OUTSIDE RECORDS SUMMARY | 2025-01-02 17:28 | XMS_ITS | Encounter Summary ---
Author Organization [facility] Address [address] [place] [address] Care Team Providers Care Tread Tuber Machine Operator Name Role Phone Lacey Garcia MD Primary Care Provider Reason for Visit * Reason Onset Date Comments call from doctors office 12/14/2024 Encounter Details Date Type Department Care Team ([facility] st Contact Info) Description 12/14/2024 Telephone Adult Medicine - [address] [phone] Lacey Garcia MD 230 [place], [place] [phone] Social History Tobacco Use Types Packs/Day Years [...] 12:58 PM EDT Riddhi, nurse calling from [facility], states pt was supposed to be [...] Info) Description 01/17/2025 10:30 AM EDT Evaluation [facility] Rehabilitation [facility] 175 [facility] 350 [place] [phone] Felix Dye, PT 01/24/2025 9:30 AM EDT Office Visit Orthopedic Surgery [facility] 250 175 [facility] 250 [place] [phone] Rogers Lance, DPM 175 [facility] 250 [place] [phone] 03/01/2025 9:00 AM EST Appointment [facility] CT Scan [address] [place] [phone] 03/05/2025 10:30 AM EST Office Visit Adult Medicine [facility] 230 [place] [phone] Pantera Valdes PA [address] [place] [address] 03/12/2025 11:00 AM EST Office Visit Pulmonolgy - [place] 175 [facility] 200 [place] [phone] Sherrie Sosa NP [address] [place] [phone] documented as of this encounter Visit Diagnoses Not on filedocumented in this encounter Care Teams Tread Tuber Machine Operator Relationship Specialty Start Date End Date Lacey Garcia MD [address] [place] [phone] PCP - General Internal Medicine 08/04/21 documented as of this encounter
--- OUTSIDE RECORDS SUMMARY | 2025-01-02 17:28 | XMS_ITS | Patient Health Record ---
Author Organization [facility] Address [address] [facility] 102 [place] [address] Care Team Providers Care Reducing Machine Operator Name Role Phone Lacey Garcia Primary Care [...] Status Risk Notes Problem Diabetic renal disease (093359611) Type 2 diabetes mellitus with diabetic chronic kidney disease (E11.22) Active confirmed Problem Acquired hallux rigidus (9519387) Hallux rigidus, right foot (M20.21) Active confirmed Problem Acquired hallux rigidus (2733051) Hallux rigidus, left foot (M20.22) Active confirmed Problem Chronic kidney disease stage 2 (352188953) Chronic kidney disease, stage 2 (mild) (N18.2) Active confirmed Plan Of Treatment No Information Insurance Providers Payer Name Payer Address Payer Phone Subscriber Number Group Number Insured Name Patient Relationship to Insured Coverage Start Date Coverage End Date Medicare of [place] [address] [place] [phone] [id number] Heidi Whitman Self - patient is the insured [employer] Blue [employer] [address] [place] [phone] [id number] Heidi Whitman Self - patient is [...]
--- OUTSIDE RECORDS SUMMARY | 2025-01-02 17:28 | XMS_ITS | Clinical Summary ---
Author Organization [facility] [address] [place] [address] [place] [phone] Phone Care Team Providers Care Farm Equipment Mechanic Apprentice Name Role Phone Lacey Garcia MD Primary [...] PM EDT - 12/16/2024 2:49 PM EDT [facility] [address] [place] [phone] Jordan Alexander MD Goebel, Mathew, MD Muhoozi, Bannet, MD Sciatica of right side Discharge Disposition: Home or Self Care 12/14/2024 Telephone Adult Medicine [address] [phone] Lacey Garcia MD 12/07/2024 8:00 AM EDT Office Visit Adult [address] [phone] Pantera Valdes PA Skin mole (Primary Dx); Skin lesion; Benign hypertension 11/29/2024 11:36 AM EDT - 11/29/2024 11:49 AM EDT [address] [phone] Kleber Nolan MD Right hip pain (Primary Dx) Discharge Disposition: Home or Self Care 11/20/2024 10:15 AM EDT Office Visit Orthopedic Surgery [facility] [address] [place] [phone] Rogers Lance, DPM Chronic gout of left foot, unspecified cause (Primary Dx); Dermatophytosis of nail; Arthritis of left ankle; Follow-up exam 11/12/2024 8:50 PM EDT - 11/12/2024 9:43 PM EDT [facility] [address] [place] [phone] Abrasion of right cornea, initial encounter (Primary Dx) Discharge Disposition: Home or Self Care 11/02/2024 9:40 AM EDT - 11/02/2024 11:59 PM EDT Hospital Encounter [facility] MRI [address] [place] [phone] Mild cognitive impairment; Benign hypertension; Hyperlipidemia, unspecified hyperlipidemia type; Anxiety Discharge Disposition: Home or Self Care 10/30/2024 10:00 AM EDT Office Visit Adult Medicine [facility] [address] [place] [phone] Lacey Garcia MD Mild cognitive impairment (Primary Dx); Benign hypertension; Hyperlipidemia, unspecified hyperlipidemia type; Anxiety; Full code status; Advance care planning 10/23/2024 Telephone Adult [facility] 230 [place] [phone] Lacey Garcia MD 10/03/2024 1:45 PM EDT Office Visit Orthopedic Surgery - [place] 250 175 [facility] [address] [place] [phone] Rogers Lance DPM Chronic gout of left [...] SURGICAL HISTORY Bilateral PROCEDURE: HISTORY OTHER; COMMENT: [employer] sacral implant- ok to have MRI but [...] Info) Description 01/17/2025 10:30 AM EDT Evaluation [facility] Outpatient Rehabilitation - [place] 175 [facility] 350 [place] [phone] Felix Dye, ZULLY 01/24/2025 9:30 AM EDT Office Visit Orthopedic Surgery - [place] 250 175 [facility] 250 [place] [phone] Rogers Lance DPM 175 [facility] 250 [place] [phone] 03/01/2025 9:00 AM EST Appointment [facility] CT Scan [address] [place] [phone] 03/05/2025 10:30 AM EST Office Visit Adult Medicine - [place] 230 [place] [phone] Pantera Valdes PA 230 [place] [address] 03/12/2025 11:00 AM EST Office Visit Pulmonolgy [facility] 175 [facility] [address] [place] [phone] Sherrie Sosa NP 230 [place] [phone] Health Maintenance Due Date Last Done Comments [...] CBC auto differential (12/15/2024 10:11 PM EDT) Pathologist [facility] WBC 6.9 4.8 - 10.8 K/mcL LAB HEMETOLOGY METHOD 12/15/2024 10:21 PM [facility] RBC 3.60(L) 3.80 - 4.80 M/mcL LAB HEMETOLOGY METHOD 12/15/2024 10:21 PM [facility] Hemoglobin 10.5(L) 11.5 - 16.0 g/dL LAB HEMETOLOGY METHOD 12/15/2024 10:21 PM [facility] Hematocrit 31.7(L) 35.0 - 47.0 % LAB HEMETOLOGY METHOD 12/15/2024 10:21 PM [facility] MCV 88.3 79.0 - 98.0 FL LAB HEMETOLOGY METHOD 12/15/2024 10:21 PM [facility] MCH 29.2 27.0 - 32.0 pcg LAB HEMETOLOGY METHOD 12/15/2024 10:21 PM [facility] MCHC 33.1 32.0 - 37.0 g/dL LAB HEMETOLOGY METHOD 12/15/2024 10:21 PM [facility] RDW 12.9 11.0 - 15.0 % LAB HEMETOLOGY METHOD 12/15/2024 10:21 PM [facility] Platelets 205 130 - 400 K/mcL LAB HEMETOLOGY METHOD 12/15/2024 10:21 PM [facility] MPV 9.9 7.0 - 11.0 FL LAB HEMETOLOGY METHOD 12/15/2024 10:21 PM [facility] NRBC 0.0 <1.0 % LAB HEMETOLOGY METHOD 12/15/2024 10:21 PM [facility] NRBC Absolute 0.00 <0.10 K/mcL LAB HEMETOLOGY METHOD 12/15/2024 10:21 PM [facility] Neutrophils Relative 61.6 % LAB HEMETOLOGY METHOD 12/15/2024 10:21 PM [facility] Lymphocytes Relative 25.5 % LAB HEMETOLOGY METHOD 12/15/2024 10:21 PM [facility] Monocytes Relative 9.6 % LAB HEMETOLOGY METHOD 12/15/2024 10:21 PM [facility] Eosinophils Relative 2.3 % LAB HEMETOLOGY METHOD 12/15/2024 10:21 PM [facility] Basophils Relative 0.6 % LAB HEMETOLOGY METHOD 12/15/2024 10:21 PM [facility] Immature Granulocytes Relative 0.4 % LAB HEMETOLOGY METHOD 12/15/2024 10:21 PM [facility] Neutrophils Absolute 4.26 1.50 - 7.00 K/mcL LAB HEMETOLOGY METHOD 12/15/2024 10:21 PM [facility] Lymphocytes Absolute 1.76 1.00 - 5.00 K/mcL LAB HEMETOLOGY METHOD 12/15/2024 10:21 PM [facility] Monocytes Absolute 0.66 0.20 - 1.00 K/mcL LAB HEMETOLOGY METHOD 12/15/2024 10:21 PM [facility] Eosinophils Absolute 0.16 0.00 - 0.50 K/mcL LAB HEMETOLOGY METHOD 12/15/2024 10:21 PM EDT [facility] Basophils Absolute 0.04 0.00 - 0.20 K/mcL LAB HEMETOLOGY METHOD 12/15/2024 10:21 PM EDT [facility] Immature Granulocytes Absolute 0.03 0.00 - 0.03 K/mcL LAB HEMETOLOGY METHOD 12/15/2024 10:21 PM EDT [facility] Blood Venous blood specimen / Unknown Venipuncture / Unknown 12/15/2024 10:11 PM EDT 12/15/2024 10:16 PM EDT us Jordan Alexander MD LAB BLOOD ORDERABLES Final Result [facility] [address] [place] [address], * (ABNORMAL) Comprehensive Metabolic Panel (CMP) (12/15/2024 10:11 PM EDT) Sodium 141 133 - 145 mmol/L LAB CHEMISTRY METHOD 12/15/2024 10:39 PM [facility] Potassium 3.4(L) 3.5 - 5.5 mmol/L LAB CHEMISTRY METHOD 12/15/2024 10:39 PM [facility] Chloride 109 96 - 110 mmol/L LAB CHEMISTRY METHOD 12/15/2024 10:39 PM [facility] CO2 27 21 - 32 mmol/L LAB CHEMISTRY METHOD 12/15/2024 10:39 PM [facility] Anion Gap 5 3 - 11 LAB CHEMISTRY METHOD 12/15/2024 10:39 PM [facility] Glucose 109(H) 70 - 100 mg/dL LAB CHEMISTRY METHOD 12/15/2024 10:39 PM [facility] BUN 15 5 - 25 mg/dL LAB CHEMISTRY METHOD 12/15/2024 10:39 PM [facility] Creatinine 0.60 0.50 - 1.10 mg/dL LAB CHEMISTRY METHOD 12/15/2024 10:39 PM [facility] eGFR 91 >=60 mL/min/1. 73m2 LAB CHEMISTRY METHOD 12/15/2024 10:39 PM [facility] Comment:Calculation based on the Chronic Kidney Disease Epidemiology Collaboration (CKD-EPI) equation refit without adjustment for race. BUN/Creatinine Ratio 25.0 LAB CHEMISTRY METHOD 12/15/2024 10:39 PM [facility] Calcium 8.4(L) 8.5 - 10.5 mg/dL LAB CHEMISTRY METHOD 12/15/2024 10:39 PM [facility] AST (SGOT) 16 10 - 42 unit/L LAB CHEMISTRY METHOD 12/15/2024 10:39 PM [facility] ALT (SGPT) 14 10 - 60 unit/L LAB CHEMISTRY METHOD 12/15/2024 10:39 PM [facility] Alkaline Phosphatase 74 42 - 121 unit/L LAB CHEMISTRY METHOD 12/15/2024 10:39 PM [facility] Total Protein 6.3 6.0 - 8.0 g/dL LAB CHEMISTRY METHOD 12/15/2024 10:39 PM [facility] Albumin 3.1(L) 3.2 - 5.0 g/dL LAB CHEMISTRY METHOD 12/15/2024 10:39 PM [facility] Total Bilirubin 0.4 0.0 - 1.4 mg/dL LAB CHEMISTRY METHOD 12/15/2024 10:39 PM [facility] Blood Venous blood specimen / Unknown Venipuncture / Unknown 12/15/2024 10:11 PM EDT 12/15/2024 10:16 PM EDT us Jordan Alexander MD LAB BLOOD ORDERABLES Final Result [facility] [address] [place] [address], * XR Hip 2-3 Views Right (12/15/2024 [...] Signed Date: 12/16/2024 08:52 ET Workstation ID: [id number] Transcribed By: Self Edit Transcribed Date: 12/16/2024 [...] Signed Date: 12/16/2024 08:52 ET Workstation ID: [id number] Transcribed By: Self Edit Transcribed Date: 12/16/2024 08:48 ET us Jordan Alexander MD IMG XR PROCEDURES Final Res ult * CT Lumbar Spine wo Contrast (12/15/2024 7:34 PM EDT) Anatomical Region Laterality Modality Spine, L-spine Computed Tomogra phy 12/15/2024 8:1 3 PM EDT Impressions 12/15/2024 8:13 PM EDT 1. No acute osseous or alignment abnormality of the lumbar spine. 2. Grade 1 anterolisthesis of L4 on L5, degenerative. 3. Yikw-cx-ojzojkar multilevel spondylosis. 4. Osteopenia. This document has [...] uncovering. Facet joint arthrosis. Moderate right and ymfb-uv-nfjzmfuq left neural foraminal narrowing. L3-L4: Mild posterior [...] uncovering. Facet joint arthrosis. Moderate right and nxxn-by-yrleqgwp left neural foraminal narrowing. L3-L4: Mild posterior disc bulge. Facet joint arthrosis. Mild bilateral neural foraminal narrowing. L2-L3: Mild posterior disc bulge. Facet joint arthrosis. L1-L2: Intervertebral disc is normal in height. No significant discbulge or central canal stenosis. IMPRESSION: 1. No acute osseous or alignment abnormality of the lumbar spine. 2. Grade 1 anterolisthesis of L4 on L5, degenerative. 3. Vsoc-ti-rjwiukto multilevel spondylosis. 4. Osteopenia. This document has [...] metatarsal noted hammertoe contractures lesser digit noted us Rogers Lance DPM IMG XR PROCEDURES Final [...] GUNDERSON Reviewed and Electronically Signed By: MONTY GUNEDRSON Signed Date: 11/02/2024 14:05 ET Workstation ID: [id number] Transcribed By: Self Edit Transcribed Date: 11/02/2024 [...] Signed Date: 11/02/2024 14:05 ET Workstation ID: [id number] Transcribed By: Self Edit Transcribed Date: 11/02/2024 14:02 ET Lacey Garcia MD IMG MRI PROCEDURES Fin al Result * Injection tendon or ligament (10/03/2024 1:45 PM EDT) Rogers Hare DPM - 10/03/2024 1:45 PM EDT Rogers Lance DPM 10/03/2024 5:41 PM Injection tendon or ligament Indications: pain Details: 25 G needle Medications: 0.5 mL lidocaine (PF) 1 %; 20 mg triamcinolone acetonide 40 mg/mL Informed Consent: Site: Foot ligament tendon Rogers Lance DPM IN CLINIC/BEDSIDE ORDERAB LES Final Result from Last 3 Months Insurance MEDICARE MEDICAID - [place] Advance Directives Documents on File Type Date Recorded Patient Scarf Gluer Expl anation Advance Directives and Living Will [...] currently active code status orders. Care Teams Farm Equipment Mechanic Apprentice Relationship Specialty Start Date End Date Lacey Garcia MD [address] [place] [id number] PCP - General Internal Medicine 08/04/21
[2025-01-02 18:27] LABS: Vitamin B12 273 pg/mL (200-900)
== END 2025-01-02 13:33 | disposition home or self-care (01) ==
LOC: HO.HKASLDS 13:32
PROVIDERS: Visit Provider Nurse Practitioner
DX: R41.3 Other amnesia (principal)
CPT/HCPCS: 36415; 82607; 84443

== ENCOUNTER 2025-02-19 15:17 | Outpatient (AMB) | payer MEDICARE, MEDICAID, SELFPAY ==
--- OUTSIDE RECORDS SUMMARY | 2025-02-19 11:30 | XMS_ITS | Encounter Summary ---
Author Organization [facility] Address [address] [place] [address] Care Team Providers Care Farmer And Grazier Name Role Phone Lacey Garcia MD Primary Care Provider Reason for Visit * Consultation (Routine) - Authorized Specialty Diagnoses / Procedures Referred By Contjocelyne mcdonnell Referred To Contact Physical Therapy Diagnoses Sciatica of right side Debora De La Paz, DO [address] [place] [address] Phone: tel: fax: [address] [address] Phone: tel: fax: Referral ID Status Reason Start Date Expiration Date Visits Requested Visits Authorized [id number] Authorized Specialty Services Required 12/16/2024 12/16/2025 4 4 Encounter Details Date Type Department Care Team (Late st Contact Info) Description 02/19/2025 11:30 AM EST Treatment [address] [address] Felix Dye PT Sciatica, right side (Primary Dx); Pain in right hip Social History Tobacco Use Types Packs/Day Years [...] on file documented as of this encounter Functional Status * Are you deaf or do you have serious difficulty hearing? Answer Date of Assessment Author No 12/16/2024 10:25 AM Kayleigh Munroe RN * Are you blind or do you have serious difficulty seeing, even when wearing glasses? Answer Date of Assessment Author No 12/16/2024 10:25 AM Kayleigh Munroe RN * Do you have serious difficulty walking or climbing stairs? Answer Date of Assessment Author No 12/16/2024 10:25 AM Kayleigh Munroe RN * Do you have serious difficulty dressing or bathing? Answer Date of Assessment Author No 12/16/2024 10:25 AM Kayleigh Munroe RN * Because of a physical, mental, or emotional condition, do you have serious difficulty doing errandsalone such as visiting the doctor? Answer Date of Assessment Author No 12/16/2024 10:25 AM Kayleigh Munroe RN documented as of this encounter Mental Status * Because of a physical, mental, or emotional condition, do you have serious difficulty concentrating, remembering, or making decisions? (5 years old or older) Answer Entry Date Author No 12/16/2024 10:25 AM Kayleigh Munroe RN documented in this encounter Progress Notes * Felix Dye PT - 02/19/2025 11:30 AM EST [facility] - Outpatient PHYSICAL THERAPY DAILY TREATMENT NOTE - OP Date: 02/19/2025 Visit Number: 2 Patient Name: Heidi Whitman : 1945 Age: 79 y.o. Gender: female Diagnosis: ICD-10-CM ICD-9-CM 1. Sciatica, right side M54.31 724.3 2. Pain in right hip M25.551 719.45 Date of Onset/Surgery: 02/12/2025 Referring Provider: Debora De La Paz DO Insurance: Payor: MEDICARE / Plan: MEDICARE PART A & B / Product Type: Medicare / Patient Identified by: Felix Dye PT Language: Speaks and understands Angolan as preferred language with no spanish medical interpreter required Medications: Medications Ordered Prior to Encounter[1] Allergies: has no known allergies. Precautions: None Fall risk: No SUBJECTIVE: Subjective Report: OK. Not much pain Chart Reviewed: Yes Pain: Lateral R hip 04/28 OBJECTIVE: Vitals: There were no vitals filed for this visit.; TREATMENT INTERVENTION: Therex: Nu step x 4min Passive HS stretching Supine isometric hip abd 2 x 10 with 3 dec holds (HEP) Abd small arcs vs blue tband in H/L 2 x 10 (HEP) Bridges 2 x 10 (HEP) Sit to stands 2 x 10 (HEP) Sidestepping in // bars 2 x 4 laps ASSESSMENT/Response to Treatment Good Weak abductors controlling hip add in wt bearing (trendelenburg). Patient Education: Education provided: HEP Education Provided To: Patient utilizing Explanation, Demonstration, and Printed Material mode(s) of education Response to Education: Applied Knowledge, Verbal Understanding, and Demonstrated Skills PLAN POC Development/Review: No Change in the Plan of Care; Participants: Patient Interventions Time Entry: Modalities: Therapeutic procedures: Therapeutic Exercise Time Entry: 27 Total Treatment Time: 30 Documentation completed by Felix Dye PT [1] Current Outpatient Medications on File Prior to Visit Medication Sig Dispense Refill Advair HFA 45-21 mcg/actuation inhaler Inhale 1 puff by mouth 2 (two) times a day. Rinse mouth withwater after use to reduce aftertaste and incidence of candidiasis. Do not swallow. 12 each 5 albuterol HFA (PROAIR HFA ; PROVENTIL HFA ; VENTOLIN HFA) 90 mcg/actuation inhaler Inhale 2 puffs by mouth. chlorthalidone (HYGROTON) 25 mg tablet TAKE 1/2 TABLET BY MOUTH DAILY 45 tablet 0 cholecalciferol (VITAMIN D-3) 50 mcg (2,000 unit) capsule Take 1 capsule (2,000 Units total) by mouth 1 (one) time each day. diclofenac (VOLTAREN) 1 % topical gel Apply 4 g topically 2 (two) times a day. 200 g 0 inhalational spacing device (BreatheRite Valved MDI Chamber) inhaler 1 Device by Other route 1 (one) time if needed (with inhalers). L.acidoph,plant-B.animal,long (Probiotic Acidophilus Beads) 2 billion cell capsule Take 1 capsule by mouth 1 (one) time each day. loperamide (IMODIUM) 2 mg capsule Take 1 capsule (2 mg total) by mouth 4 (four) times a day if needed for diarrhea. losartan (COZAAR) 50 mg tablet TAKE 1 TABLET BY MOUTH EVERY DAY 90 tablet 0 lovastatin (MEVACOR) 20 mg tablet TAKE 1 TABLET BY MOUTH EVERYDAY AT BEDTIME 90 tablet 0 naproxen (NAPROSYN) 500 mg tablet TAKE 1 TABLET BY MOUTH TWICE A DAY WITH MEALS (Patient not taking: Reported on 12/07/2024) 60 tablet 5 omega-3 acid ethyl esters (LOVAZA) 1 gram capsule Take 1 capsule (1 g total) by mouth 2 (two) timesa day. sertraline (ZOLOFT) 25 mg tablet Take 1 tablet (25 mg total) by mouth 1 (one) time each day. 90 tablet 0 No current facility-administered medications on file prior to visit. documented in this encounter Plan of Treatment Upcoming Encounters Date Type Department Care Team (Late st Contact Info) Description 02/26/2025 10:30 AM EST Treatment [facility] [address] [phone] Felix Dye, PT 03/01/2025 9:[address] [facility] Scan [address] [place] [phone] 03/05/2025 9:30 AM EST Treatment [address] [phone] Felix Dye, PT 03/05/2025 10:30 AM EST Office Visit Adult Medicine - [place] [address] [place] [phone] Pantera Valdes PA [address] [place] [address] 03/12/2025 11:00 AM EST Office Visit Pulmonology - [place] [facility] [address] [place] [phone] Sherrie Sosa NP [address] [place] [phone] documented as of this encounter Visit Diagnoses Diagnosis Sciatica, right side- Primary Pain in right hip documented in this encounter Care Teams Farmer And Grazier Relationship Specialty Start Date End Date Lacey Garcia MD [address] [place] [id number] PCP - General Internal Medicine 08/04/21 documented as of this encounter
--- NOTE | 2025-02-19 14:24 | A.OFFVIS_ITS ---
Vital Signs 02/19/25 15:40 Height 5 ft 2 in Weight 150 lb BMI 27.4 BP 124/68 Blood Pressure Location Rt brachial Position Sitting Respiration 16 Pulse 87 Pulse Source Pulse Oximeter Pulse Oximetry (%) 98 Oxygen Delivery Method Room Air Intake Visit Reasons: Results Nca Certified Concierge Required: No Accompanied by: Friend Allergies No Known Allergies Allergy (Verified 02/19/25 15:43) HPI Comments Details: Heidi is a 79-year-old female patient with a past medical history of hyperlipidemia, hypertension, and pulmonary embolism (no longer on anticoagulation) who is here today for a follow-up visit for her memory. She is again accompanied today by her friend Rigo. Per HPI from previous and initial visit together: Heidi reports that she noticed her memory starting to change approximately 5 months ago. Rigo also agrees that over the course of this general time frame, she has been much more forgetful. She gives the example of forgetting upcoming appointments and forgetting where she puts objects. She recently had an MRI at [facility] performed 11/02/2024. The MRI report reflects that there are no acute infarct, mass effect, or intracranial hemorrhage. There was no notable pattern of cerebral volume loss to suggest a specific neurodegenerative process.There is mentioned of mild chronic small-vessel ischemic changes throughout the supratentorial white matter . At the time of her initial visit on 01/01/2025 I ordered a B12, TSH, and Amuloid PET scan. Labs from 01/02/2025: B12 level: 273 TSH: 2.37 B12 is low end of normal, I did recommend that she begin supplementation with B12 500 mcg daily by mouth in the morning on an empty stomach. 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 Tobacco: None, never Etoh: None Substance use: None Memory evaluation: Onset of memory changes: Approximately 5 months Rate of progression: Rapid Cognitive: Difficulty remembering upcoming events:Yes, she uses a calendar to help with this Getting lost: No Difficulty keeping track of time: No Difficulty finding appropriate words:No Difficulty making decisions or problem-solving:No Functional: Difficulty writing checks, paying bills: Very little difficulty Difficulty driving a car:No Difficulty shopping alone:No Difficulty performing household tasks:No Difficulty managing own medications:No Difficulty pursuing hobbies/leisure activities:Puzzles. No difficulty Change in gait:No Social activities: Difficulty holding conversation:No Decreased social activity with family/friends:No Less cooperative:No Less aware of others feeling/her full:No Less concerned about bathing/dressing/grooming:No Behavioral: Sad, depressed:Sometimes Anxious, worried:Does feel anxious at times Inpatient, fidgety:No Acts impulsively, disinhibited:No Change appetite or weight: No Change in sleep pattern, daytime fatigue: No, she sleeps about 7-8hrs per night and feels rested in the morning Hallucinations:No PFSH Medical History (Updated 02/19/25 @ 16:19 by Michelle Ruiz CNP) History of anal cancer HLD (hyperlipidemia) Hypertension Memory changes Social History (Updated 01/01/25 @ 08:56 by Judah Austin [facility]) Alcohol intake: never Patient Tobacco Use Status: Never used Tobacco Review of Systems Const All systems reviewed & are unremarkable except as noted in HPI and below Physical Exam Exam Exam: 01/01/2025 MOCA: MOCA total: Executive:07/22 Namin/3 Attention:09/22 Language:04/21 Abstraction:2/2 Delayed recall:04/23 Orientation:09/22 Vital Signs: Last Vital Signs Pulse 87 02/19/25 15:40 Resp 16 02/19/25 15:40 BP 124/68 02/19/25 15:40 Pulse Ox 98 02/19/25 15:40 Oxygen Delivery Method Room Air 02/19/25 15:40 BMI result Body Mass Index 27.4 Const General: cooperative, healthy appearing, comfortable and no acute distress Nutritional Appearance: average body habitus Orientation/consciousness: oriented to person, oriented to place and oriented to time HEENT Head: Yes normal to inspection Neuro General: oriented to person, oriented to place and oriented to time Cranial nerves: Yes CN's II-XII intact bilaterally Cognition (Neuro): normal cognition Gait exam (Neuro): Normal gait present Motor exam (neuro): 5/5 motor strength present throughout Sensory Exam: double simultaneous stimulation for sensation normal Deep tendon reflexes (DTR's): Rt Biceps (C5, C6): 2+, Left biceps reflex intensity grade: 2+, Right brachioradialis reflex intensity grade: 2+, Left brachioradialis reflex intensity grade: 2+, Right patellar reflex intensity grade: 2+ and Left patellar reflex intensity grade: 2+ Coordination: [id number] test normal Assessment & Plan Assessment & Plan (1) Memory changes: Code(s): R41.3 - Other amnesia Category: Medical Plan: . (2) Memory changes: Code(s): R41.3 - Other amnesia Category: Medical Plan: . (3) Alzheimer's dementia: Code(s): G30.9 - Alzheimer's disease, unspecified; F02.80 - Dementia in other diseases classified elsewhere, unspecified severity, without behavioral disturbance, psychotic disturbance, mood disturbance, and anxiety Category: Medical Plan: . Omi Gordon is a 79-year-old female patient with a past medical history of hyperlipidemia, hypertension, and pulmonary embolism (no longer on anticoagulation) who is here today for a follow-up visit for her memory. She is again accompanied today by her friend Rigo. I reviewed with them the results of her PET scan which does support high likelihood of AD with a moderate and frequent amount of anyloid plaques in the brain. We discussed Kisunla today including risks, benefits, and MRI/scheduling requirements of the medication. She would like to proceed with start-up. In the meantime, I will obtain ApoE genetic test to evaluate for any added increased risk of ARIA. If test is favorable she would like to proceed and if test is unfavorable we will discuss risks further before proceeding. -Labs: ApoE and repeat B12 -Continue B12 supplementation -Check in informally once labs are back to initiate therapy Orders: Orders Vitamin B12 Today R41.3 - Other amnesia Other Ref Test - [facility] Today F02.80 - Dementia in other diseases classified elsewhere, unspecified severity, without behavioral disturbance, psychotic disturbance, mood disturbance, and anxiety, G30.9 - Alzheimer's disease, unspecified, R41.3 - Other amnesia Coding Level of Care Code Est Pt Level 4 (92839) Diagnoses Memory changes R41.3 Alzheimer's dementia G30.9; F02.80
[2025-02-19 15:40] VITALS: BP 124/68; PULSE 87; RESP 16; O2SAT 98; BMI 27.4
--- OUTSIDE RECORDS SUMMARY | 2025-02-19 16:35 | XMS_ITS | Patient Health Record ---
Author Organization [facility] Address [address] [facility] [address] [place] [address] Care Team Providers Care Civil Engineering Director Name Role Phone Lacey Garcia Primary Care [...] Status Risk Notes Problem Diabetic renal disease (299480979) Type 2 diabetes mellitus with diabetic chronic kidney disease (E11.22) Active confirmed Problem Acquired hallux rigidus (9247997) Hallux rigidus, right foot (M20.21) Active confirmed Problem Acquired hallux rigidus (9392039) Hallux rigidus, left foot (M20.22) Active confirmed Problem Chronic kidney disease stage 2 ([id number]) Chronic kidney disease, stage 2 (mild) (N18.2) Active confirmed Plan Of Treatment No Information Insurance Providers Payer Name Payer Address Payer Phone Subscriber Number Group Number Insured Name Patient Relationship to Insured Coverage Start Date Coverage End Date Medicare of [place] [address] [place] [phone] [id number] Heidi Whitman Self - patient is the insured [employer] [address] [place] [phone] [id number] Heidi Whitman Self - patient is [...]
--- OUTSIDE RECORDS SUMMARY | 2025-02-19 16:35 | XMS_ITS | Clinical Summary ---
Author Organization [facility] [address] [place] [address] [place] [phone] Phone Care Team Providers Care Marketing Technology Specialist Name Role Phone Lacey Garcia MD Primary Care Provider Allergies No known active allergies Medications albuterol HFA (PROAIR HFA ; PROVENTIL HFA ; VENTOLIN HFA) 90 mcg/actuation inhaler Inhale 2 puffs by mouth. 4 Active cholecalciferol (VITAMIN D-3) 50 mcg (2,000 unit) capsule Take 1 capsule (2,000 Units total) by mouth 1 (one) time each day. 4 Active omega-3 acid ethyl esters (LOVAZA) 1 gram capsule Take 1 capsule (1 g total) by mouth 2 (two) times a day. Active L.acidoph,plant- B.animal,long (Probiotic Acidophilus Beads) 2 billion cell capsule Take 1 capsule by mouth 1 (one) time each day. 2 Active loperamide (IMODIUM) 2 mg capsule Take 1 capsule (2 mg total) by mouth 4 (four) times a day if needed for diarrhea. 2 Active inhalational spacing device (BreatheRite Valved MDI Chamber) inhaler 1 Device by Other route 1 (one) time if needed (with inhalers). 4 Active Advair HFA 45-21 mcg/actuation inhalerIndicatio ns:Mild intermittent asthma, uncomplicated,Ch ronic obstructive pulmonary disease, unspecified (CMS/HCC V24, CMS/HCC V28) Inhale 1 puff by mouth 2 (two) times a day. Rinse mouth with water after use to reduce aftertaste and incidence of candidiasis. Do not swallow. 12 each 5 5 03/10/20 25 Active naproxen (NAPROSYN) 500 mg tablet TAKE 1 TABLET BY MOUTH TWICE A DAY WITH MEALS 60 tablet 5 5 Active Additional Information Patient not taking.Reported on 12/07/2024 diclofenac (VOLTAREN) 1 % topical gel Apply 4 g topically 2 (two) times a day. 200 g 5 Active chlorthalidone (HYGROTON) 25 mg tabletIndication s:Essential (primary) hypertension TAKE 1/2 TABLET BY MOUTH DAILY 45 tablet 5 Active lovastatin (MEVACOR) 20 mg tablet TAKE 1 TABLET BY MOUTH EVERYDAY AT BEDTIME 90 tablet 5 Active losartan (COZAAR) 50 mg tablet TAKE 1 TABLET BY MOUTH EVERY DAY 90 tablet 5 Active sertraline (ZOLOFT) 25 mg tablet Take 1 tablet (25 mg total) by mouth 1 (one) time each day. 90 tablet 5 02/21/20 25 Active Active Problems Problem Noted Date Diagnosed Date Full code status 10/30/2024 Hyperlipidemia 08/09/2024 Benign hypertension 08/09/2024 History of pulmonary embolus (PE) 08/09/2024 Encounters Date Type Department Care Team Description 02/19/2025 11:30 AM EST Treatment [address] [phone] Felix Dye, PT Sciatica, right side (Primary Dx); Pain in right hip 02/13/2025 Plan of Care Documentation [address] [phone] 02/12/2025 9:30 AM EDT Evaluation [address] [phone] BrownQuocic, PT Sciatica, right side (Primary Dx); Pain in right hip 01/04/2025 Telephone Adult [facility] [address] [place] [phone] Lacey Garcia MD 12/15/2024 5:11 PM EDT - 12/16/2024 2:49 PM EDT Emergency [facility] Emergency [address] [place] [phone] Jordan Alexander MD Goebel, Mathew, MD Muhoozi, Bannet, MD Sciatica of right side Discharge Disposition: Home or Self Care 12/14/2024 Telephone Adult [facility] [address] [place] [phone] Lacey Garcia MD 12/07/2024 8:00 AM EDT Office Visit Adult [address] [phone] Pantera Valdes PA Skin mole (Primary Dx); Skin lesion; Benign hypertension 11/29/2024 11:36 AM EDT - 11/29/2024 11:49 AM EDT Emergency [facility] Emergency [address] [place] [phone] Kleber Nolan MD Right hip pain (Primary Dx) Discharge Disposition: Home or Self Care 11/20/2024 10:15 AM EDT Office Visit Orthopedic Surgery - [place] [address] [place] [phone] Rogers Lance DPM Chronic gout of left foot, unspecified cause (Primary Dx); Dermatophytosis of nail; Arthritis of left ankle; Follow-up exam from Last 3 Months Immunizations Immunization Administration Dates Next Due COVID-19 (Moderna/Spikevax) 12yo and older 01/18/2025 Influenza Quadravalent, 0.5m l (Fluzone High-dose) 65yo and older 01/20/2024,02/04/2023 Influenza Quadravalent, MDCK , 0.5ml, with preservative (Flucelvax) 6mo and older 02/28/2017 Influenza trivalent, 0.5mL ( Fluzone High-dose) 65yo and older 01/15/2025,01/20/2024,02/02/2022,01/22,01/25/2020,01/18/2019,01/17/2018 ,01/14/2016 Influenza trivalent, with pr eservative (Fluzone; Afluria) [...] subun it RSVpreF, 0.5mL, Preservative Free (Arexvy) 50yo and older 12/12/2022 Tdap Tetanus diptheria acell ular pertussis (Boostrix; Adacel) 7yo and older 10/08/2023,11/30/2012,12/28/2011 Zoster Live 11/30/2012,12/28/2011 Zoster recombinant (Shingrix ) 19yo and older 03/25/2023,01/09/2023 Surgical History Surgery Date Site/Laterality Comments OTHER SURGICAL HISTORY PROCEDURE: MOHS' CHEMOSURGERY, ADD'L SPECIMENS; COMMENT: hx BCC, nose. OTHER SURGICAL HISTORY Bilateral PROCEDURE: HISTORY OTHER; COMMENT: MEDTR[employer]IC sacral implant- ok to have MRI but [...] Info) Description 02/26/2025 10:30 AM EST Treatment [facility] 175 [facility] [address] [place] [phone] Felix Dye, PT 03/01/2025 9:00 AM EST Appointment [facility] CT Scan [address] [place] [phone] 03/05/2025 9:30 AM EST Treatment [facility] [address] [phone] Felix Dye, PT 03/05/2025 10:30 AM EST Office Visit Adult Medicine - [place] [address] [place] [phone] Pantera Valdes PA [address] [place] [address] 03/12/2025 11:00 AM EST Office Visit Pulmonology - [place] 175 [facility] [address] [place] [phone] Sherrie Sosa, MELYSSA [address] [place] [phone] Health Maintenance Due Date Last Done Comments Colorectal Cancer Screening: Colonoscopy 1945 Diabetes: Annual Foot Exam 1955 Diabetes: Annual Retina Eye Exam 1955 Cervical Cancer Screening: HPV 1966 Cholesterol Screening (Lipid Panel) 03/28/2022 Falls Risk Assessment 03/28/2022 Hepatitis C Screening 03/28/2022 Medicare Annual Wellness Visit 03/28/2022 Osteoporosis Screening (Bone Density Screening) 03/28/2022 Social Influencers of Health Screening 03/28/2022 Diabetes: Annual Urine Albumin-Creatinine Ratio (uACR) 03/01/2024 Diabetes: Blood Sugar Control Test (HGBA1C) 03/01/2024 Depression Screening 04/19/2024 Diabetes: Annual GFR (Glomerular Filtration Rate) 12/15/2025 12/15/2024, 08/26/2024 Hypertension/CHF/CAD Annual BMP Blood Test 12/15/2025 12/15/2024, 08/26/2024 DTaP,Tdap,and Td Vaccines (4 - Td or Tdap) 10/07/2033 10/08/2023, 11/30/2012, 12/28/2011 RSV Immunization Adult Patients Completed 12/12/2022 Zoster Vaccines Completed 03/25/2023, 12/19, 11/30/2012, Additional history exists Pneumococcal Vaccine: 50+ Years Completed 05/25/2023, 06/17/2015, 12/02/2012, Additional history exists Influenza Vaccine Completed 01/15/2025, , 01/20/2024, Additional history exists COVID-19 Vaccine Completed 01/18/2025, 06/2023, 02/18/2022, Additional history exists HIB Vaccines Aged Out [...] EDT XR HIP 2-3 VIEWS RIGHT STAT 7:[address] LUMBAR SPINE WO CONTRAST STAT 12/15/2024 7:34 PM EDT XR HIP 2-3 VIEWS RIGHT STAT 10:36 AM EDT XR FOOT 3+ VIEWS LEFT Routine 11/20/2024 10:22 AM EDT Follow-up exam from Last 3 Months Results * (ABNORMAL) CBC auto differential (12/15/2024 10:11 PM EDT) [facility] WBC 6.9 4.8 - 10.8 K/mcL LAB HEMETOLOGY METHOD 12/15/2024 10:21 PM [facility] RBC 3.60(L) 3.80 - 4.80 M/mcL LAB HEMETOLOGY METHOD 12/15/2024 10:21 PM [facility] Hemoglobin 10.5(L) 11.5 - 16.0 g/dL LAB HEMETOLOGY METHOD 12/15/2024 10:21 PM [facility] Hematocrit 31.7(L) 35.0 - 47.0 % LAB HEMETOLOGY METHOD 12/15/2024 10:21 PM [facility] MCV 88.3 79.0 - 98.0 FL LAB HEMETOLOGY METHOD 12/15/2024 10:21 PM [facility] MCH 29.2 27.0 - 32.0 pcg LAB HEMETOLOGY METHOD 12/15/2024 10:21 PM [facility] MCHC 33.1 32.0 - 37.0 g/dL LAB HEMETOLOGY METHOD 12/15/2024 10:21 PM [facility] RDW 12.9 11.0 - 15.0 % LAB HEMETOLOGY METHOD 12/15/2024 10:21 PM [facility] Platelets 205 130 - 400 K/mcL LAB HEMETOLOGY METHOD 12/15/2024 10:21 PM [facility] MPV 9.9 7.0 - 11.0 FL LAB HEMETOLOGY METHOD 12/15/2024 10:21 PM [facility] NRBC 0.0 <1.0 % LAB HEMETOLOGY METHOD 12/15/2024 10:21 PM [facility] NRBC Absolute 0.00 <0.10 K/mcL LAB HEMETOLOGY METHOD 12/15/2024 10:21 PM [facility] Neutrophils Relative 61.6 % LAB HEMETOLOGY METHOD 12/15/2024 10:21 PM [facility] Lymphocytes Relative 25.5 % LAB HEMETOLOGY METHOD 12/15/2024 10:21 PM [facility] Monocytes Relative 9.6 % LAB HEMETOLOGY METHOD 12/15/2024 10:21 PM [facility] Eosinophils Relative 2.3 % LAB HEMETOLOGY METHOD 12/15/2024 10:21 PM [facility] Basophils Relative 0.6 % LAB HEMETOLOGY METHOD 12/15/2024 10:21 PM [facility] Immature Granulocytes Relative 0.4 % LAB HEMETOLOGY METHOD 12/15/2024 10:21 PM [facility] Neutrophils Absolute 4.26 1.50 - 7.00 K/mcL LAB HEMETOLOGY METHOD 12/15/2024 10:21 PM [facility] Lymphocytes Absolute 1.76 1.00 - 5.00 K/mcL LAB HEMETOLOGY METHOD 12/15/2024 10:21 PM [facility] Monocytes Absolute 0.66 0.20 - 1.00 K/mcL LAB HEMETOLOGY METHOD 12/15/2024 10:21 PM [facility] Eosinophils Absolute 0.16 0.00 - 0.50 K/mcL LAB HEMETOLOGY METHOD 12/15/2024 10:21 PM EDT [facility] Basophils Absolute 0.04 0.00 - 0.20 K/mcL LAB HEMETOLOGY METHOD 12/15/2024 10:21 PM EDT [facility] Immature Granulocytes Absolute 0.03 0.00 - 0.03 K/mcL LAB HEMETOLOGY METHOD 12/15/2024 10:21 PM EDT [facility] Blood Venous blood specimen / Unknown Venipuncture / Unknown 12/15/2024 10:11 PM EDT 12/15/2024 10:16 PM EDT us Jordan Alexander MD LAB BLOOD ORDERABLES Final Result [facility] [address] [place] [address], [place] [phone] * (ABNORMAL) Comprehensive Metabolic Panel (CMP) (12/15/2024 10:11 PM EDT) Sodium 141 133 - 145 mmol/L LAB CHEMISTRY METHOD 12/15/2024 10:39 PM [facility] Potassium 3.4(L) 3.5 - 5.5 mmol/L LAB CHEMISTRY METHOD 12/15/2024 10:39 PM [facility] Chloride 109 96 - 110 mmol/L LAB CHEMISTRY METHOD 12/15/2024 10:39 PM [facility] CO2 27 21 - 32 mmol/L LAB CHEMISTRY METHOD 12/15/2024 10:39 PM [facility] Anion Gap 5 3 - 11 LAB CHEMISTRY METHOD 12/15/2024 10:39 PM [facility] Glucose 109(H) 70 - 100 mg/dL LAB CHEMISTRY METHOD 12/15/2024 10:39 PM [facility] BUN 15 5 - 25 mg/dL LAB CHEMISTRY METHOD 12/15/2024 10:39 PM [facility] Creatinine 0.60 0.50 - 1.10 mg/dL LAB CHEMISTRY METHOD 12/15/2024 10:39 PM [facility] eGFR 91 >=60 mL/min/1. 73m2 LAB CHEMISTRY METHOD 12/15/2024 10:39 PM [facility] Comment:Calculation based on the Chronic Kidney Disease Epidemiology Collaboration (CKD-EPI) equation refit without adjustment for race. BUN/Creatinine Ratio 25.0 LAB CHEMISTRY METHOD 12/15/2024 10:39 PM T [facility] Calcium 8.4(L) 8.5 - 10.5 mg/dL LAB CHEMISTRY METHOD 12/15/2024 10:39 PM [facility] AST (SGOT) 16 10 - 42 unit/L LAB CHEMISTRY METHOD 12/15/2024 10:39 PM [facility] ALT (SGPT) 14 10 - 60 unit/L LAB CHEMISTRY METHOD 12/15/2024 10:39 PM [facility] Alkaline Phosphatase 74 42 - 121 unit/L LAB CHEMISTRY METHOD 12/15/2024 10:39 PM [facility] Total Protein 6.3 6.0 - 8.0 g/dL LAB CHEMISTRY METHOD 12/15/2024 10:39 PM [facility] Albumin 3.1(L) 3.2 - 5.0 g/dL LAB CHEMISTRY METHOD 12/15/2024 10:39 PM [facility] Total Bilirubin 0.4 0.0 - 1.4 mg/dL LAB CHEMISTRY METHOD 12/15/2024 10:39 PM [facility] Blood Venous blood specimen / Unknown Venipuncture / Unknown 12/15/2024 10:11 PM EDT 12/15/2024 10:16 PM EDT us Jordan Alexander MD LAB BLOOD ORDERABLES Final Result [facility] [address] [place] [address], * XR Hip 2-3 Views Right (12/15/2024 [...] Signed Date: 12/16/2024 08:52 ET Workstation ID: [id number] Transcribed By: Self Edit Transcribed Date: 12/16/2024 [...] Signed Date: 12/16/2024 08:52 ET Workstation ID: [id number] Transcribed By: Self Edit Transcribed Date: 12/16/2024 [...] anterolisthesis of L4 on L5, degenerative. 3. Nxwn-zd-cxwvklla multilevel spondylosis. 4. Osteopenia. This document has [...] uncovering. Facet joint arthrosis. Moderate right and ilsr-rr-hhicnkmd left neural foraminal narrowing. L3-L4: Mild posterior [...] uncovering. Facet joint arthrosis. Moderate right and tzuh-fp-jpbunayn left neural foraminal narrowing. L3-L4: Mild posterior disc bulge. Facet joint arthrosis. Mild bilateral neural foraminal narrowing. L2-L3: Mild posterior disc bulge. Facet joint arthrosis. L1-L2: Intervertebral disc is normal in height. No significant discbulge or central canal stenosis. IMPRESSION: 1. No acute osseous or alignment abnormality of the lumbar spine. 2. Grade 1 anterolisthesis of L4 on L5, degenerative. 3. Bldq-rc-lnhmwsab multilevel spondylosis. 4. Osteopenia. 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 Care Teams Marketing Technology Specialist Relationship Specialty Start Date End Date Lacey Garcia MD [address] [place] [address] [address] [place] [address] PCP - General Internal Medicine 08/04/21
== END 2025-02-19 16:07 | disposition home or self-care (01) ==
LOC: HO.HSM 15:18
PROVIDERS: PCP Family Medicine; Visit Provider Nurse Practitioner
DX: R41.3 Other amnesia (principal); G30.9 Alzheimer's disease, unspecified; F02.80 Dementia in other diseases classified elsewhere, unspecified severity, without behavioral disturbance, psychotic disturbance, mood disturbance, and anxiety
CPT/HCPCS: 99214

== ENCOUNTER → 2025-02-19 15:17 | Outpatient (BNVA) | payer MEDICARE, MEDICAID, SELFPAY | PROVIDERS: PCP Family Medicine; Visit Provider Nurse Practitioner | DX: G30.9 Alzheimer's disease, unspecified (principal); F02.80 Dementia in other diseases classified elsewhere, unspecified severity, without behavioral disturbance, psychotic disturbance, mood disturbance, and anxiety; R41.3 Other amnesia; E78.5 Hyperlipidemia, unspecified; I10 Essential (primary) hypertension | CPT/HCPCS: 99212 ==

== ENCOUNTER 2025-02-21 10:52 | Outpatient (REF) | payer MEDICARE, MEDICAID, SELFPAY ==
--- OUTSIDE RECORDS SUMMARY | 2025-02-21 12:55 | XMS_ITS | Data Portability ---
Author Organization [place] - [facility], All[facility] Address [address] [place] [phone] Assessment No assessment recorded. Plan of Treatment Reminders Order Date Submit Date Provider Last Modified By Organization Details Last Modified Time Details Appointments None record ed. Lab None record ed. Referral None record ed. Procedures None record ed. Surgeries None record ed. Imaging None record ed. Medication Orders None record ed. Patient TargetsNo targets recorded. Patient InstructionsNo instructions recorded. Reason for Referral None Reported. Results Created Date Observation Date Name Description Value Unit Range Abnormal Flag Note LastModifiedBy Organization Detail LastModifiedTime 12/07/19 24 05/16/2021 imagi ng/di agnos tic resul t No observ ation record ed. [email or web address] Not Available 22:45:06 12/07/19 24 05/24/2019 imagi ng/di agnos tic resul t No observ ation record ed. [email or web address] Not Available 22:45:42 12/07/19 24 05/24/2019 imagi ng/di agnos tic resul t No observ ation record ed. [email or web address] Not Available 22:45:50 12/07/19 24 02/02/2023 imagi ng/di agnos tic resul t No observ ation record ed. [email or web address] Not Available 22:46:27 12/07/19 24 03/07/2019 imagi ng/di agnos tic resul t No observ ation record ed. [email or web address] Not Available 22:46:36 12/07/19 24 05/16/2021 audio gram No observ ation record ed. [email or web address] Not Available 22:46:45 12/07/19 24 05/16/2021 audio gram No observ ation record ed. [email or web address] Not Available 22:46:51 12/07/19 24 05/24/2019 audio gram No observ ation record ed. [email or web address] Not Available 22:47:17 12/07/19 24 06/19/2019 audio gram No observ ation record ed. [email or web address] Not Available 22:47:22 12/07/19 24 10/27/2019 audio gram No observ ation record ed. [email or web address] Not Available 22:47:24 12/07/19 24 11/03/2021 audio gram No observ ation record ed. [email or web address] Not Available 22:47:30 12/07/19 24 11/14/2019 audio gram No observ ation record ed. [email or web address] Not Available 22:47:33 12/07/19 24 02/02/2023 audio gram No observ ation record ed. [email or web address] Not Available 22:47:37 12/07/19 24 02/02/2023 audio gram No observ ation record ed. [email or web address] Not Available 22:47:41 12/07/19 24 02/22/2023 audio gram No observ ation record ed. [email or web address] Not Available 22:47:51 Result Notes None recorded. Problems Name Problem SNOMED Code Status Onset Date Resolution Date Notes Provider Name and Address Organization Details Recorded Time Bilateral temporoma ndibular joint pain 28447153951 [id number] Active 2019 Arthralgi a of bilateral temporoma ndibular joint; Note: Date Diagnosed : 05/24/2019 2:01 PM (M26.623) Not Available [facility] 4 03:24:21 Sensorine ural hearing loss of bilateral ears 382301603 Active 2019 Sensorine ural hearing loss, bilateral ; Note: Date Diagnosed : 05/24/2019 1:47 PM (H90.3) Not Available [facility] 4 03:24:22 Bilateral tinnitus 06544826112 02 Active 2019 Tinnitus, bilateral ; Note: Date Diagnosed : 05/24/2019 2:59 PM (H93.13) Not Available [facility] 4 03:24:21 Foreign body in right ear 50089469066 473201 Active 2023 Foreign body in right ear, initial encounter ; Note: Date Diagnosed : 04/22/2023 11:01 AM (T16.1XXA ) Not Available [facility] 4 03:24:22 Foreign body in left ear 73717453303 833047 Active 2023 AMILE SMITH MD [address] [facility],[place] [address], [place], [phone] , [place] - [facility] 09:21:46 Problem Notes None recorded. Procedures Surgical History Date Name Laterality Status Provider Name and Address Organization Details Recorded Time 12/21/19 24 Removal of foreign body from ear canal completed MAILE SMITH MD [address] [facility],[place] [address], [place], [phone], [place] - [facility] 12/21/2023 09:21:21 Cataract Surgery completed Faviola Richards [place] - [facility] 12/21/2023 09:11:37 nasal septoplasty completed Faviola Richards [place] - [facility] 12/21/2023 09:11:46 complete repair of rotator cuff completed Faviola Richards [place] - [facility] 12/21/2023 09:11:55 augmentation mammoplasty completed Faviola Richards [place] - [facility] 12/21/2023 09:12:05 section completed Faviola Richards [place] - [facility] 12/21/2023 09:12:12 Imaging Results None recorded. Procedure Notes None recorded. Medical Equipment None Reported. Allergies No known drug allergies Medications Name Sig Start Date Stop Date Status Note LastModified by Organization Details LastModified Time losartan 50 mg tablet TAKE 1 TABLET BY MOUTH EVERY DAY active Not Available Not Available No t Available cyclobenza cindy 10 mg tablet TAKE 1 TABLET 3 TIMES A DAY BY ORAL ROUTE. active Not Available Not Available No t Available benzonatat e 200 mg capsule TAKE 1 CAPSULE BY MOUTH THREE TIMES A DAY FOR 10 DAYS active Not Available Not Available No t Available chlorthali done 25 mg tablet TAKE 1/2 TABLET BY MOUTH DAILY active Not Available Not Available No t Available doxycyclin e monohydrat e 100 mg tablet TAKE 1 TABLET BY MOUTH 2 TIMES PER DAY FOR 7 DAYS CAN CAUSE EXTREME SENSITIVI TY TO THE SUN. active Not Available Not Available No t Available triamcinol one acetonide 0.025 % topical cream APPLY TO AFFECTED AREA 3 TO 4 TIMES PER DAY NEEDED FOR IRRITATIO N active Not Available Not Available No t Available irbesartan 150 mg tablet active Medicatio n ID: [id number] Du ration Value: 90 Brand Name: adolfo n Send Method: E-Prescri bed Subs Allowed: subs OK Medica tionGener icName: irbesarta n Not Available Not Available Not Available lovastatin 20 mg tablet TAKE 1 TABLET BY MOUTH EVERYDAY AT BEDTIME active Not Available Not Available No t Available albuterol sulfate HFA 90 mcg/actuat ion aerosol inhaler INHALE 2 PUFFS EVERY 4 TO 6 HOURS (SHORTNES S OF BREATH OR WHEEZING) FOR 1 WEEK active Not Available Not Available No t Available Fish Oil active Medicatio n ID: [id number] Br and Name: fish oil Send Method: E-Prescri bed Subs Allowed: subs OK Medica tionGener icName: fish oil Not Available Not Available Not Available Viactiv active Medicatio n ID: [id number] Br and Name: Viactiv S end Method: E-Prescri bed Subs Allowed: subs OK Medica tionGener icName: Viactiv Not Available Not Available Not Available Sonia Morales [facility] spacer USE DIRECTED active Not Available Not Available No t Available Vitals None Recorded Social History None recorded. Functional Status None recorded. Mental Status None recorded. Family History Nothing Reported. Medical History Condition Response Emphysema Y Diabetes Y Cancer Y Hypertension Y High Cholesterol Y Gynecological HistoryNo gynecological history recorded. Obstetrics History GPAL:G 0 P 0 0 0 0 Past Encounters Encounter ID Performer Location Encounter Start Date Encounter Closed Date Diagnosis/Indication Diagnosis SNOMED-CT Code Diagnosis ICD10 Code Diagnosis IMO Codes Diagnosis Note [id number] MAILE SMITH MD [facility] [address] [place] [address] 12/21/2023 08:59:46 12/21/2023 09:21:00 Foreign body in left ear [id number] T16.2XXA 2 hearing aid domes were removed from the left external auditory canal today under the binocular microscope . No signs of trauma to the canal or drum. Recommende d she evaluate her hearing aid every time she removes it to ensure that she does not lose more domes in the ear canal. Follow-up as needed Health Concerns Section Related Observation LastModified by Organization Detai ls LastModified Time None Recorded Concern Status LastModified by Organization Details LastModified Time None Recorded Advance Directives Directive None Recorded Payers Insurance Date Sequence Insurance Name Policy Number Policy Agee Covered Member ID Agee Member ID Guarantor Name 12/21/2023 1 [place] B[place] [employer] Heidi Whitman [id number] Heidi Whitman 12/21/2023 2 [place] [facility] Heidi Whitman [id number] Heidi Whitman Notes Date Note Type Note Provider Name and Address Organization Details Recorded Time 12/21/2023 text/html Patient comes in today urgently because one of her hearing aid domes is stuck in her left ear. No pain or discharge. MAILE SMITH MD [address] [place] [address], [place], [address], [place] - [facility] 12/21/2023 09:22:47 OBGyn Episode No OBEpisode recorded.
--- OUTSIDE RECORDS SUMMARY | 2025-02-21 12:55 | XMS_ITS | Patient Health Record ---
Author Organization [facility] Address [address] [facility] [address] [place] [address] Care Team Providers Care Welt Trimming Machine Operator Name Role Phone Lacey Garcia [...] Status Risk Notes Problem Diabetic renal disease (739868363) Type 2 diabetes mellitus with diabetic chronic kidney disease (E11.22) Active confirmed Problem Acquired hallux rigidus (1196108) Hallux rigidus, right foot (M20.21) Active confirmed Problem Acquired hallux rigidus (7323349) Hallux rigidus, left foot (M20.22) Active confirmed Problem Chronic kidney disease stage 2 (515318055) Chronic kidney disease, stage 2 (mild) (N18.2) Active confirmed Plan Of Treatment No Information Insurance Providers Payer Name Payer Address Payer Phone Subscriber Number Group Number Insured Name Patient Relationship to Insured Coverage Start Date Coverage End Date Medicare of [place] [address] [place] [phone] [id number] Heidi Whitman Self - patient is the insured [employer] [address] [place] [address] [phone] [id number] Heidi Whitman Self - patient is [...]
[2025-02-21 13:04] LABS: Vitamin B12 486 pg/mL (200-900)
[2025-02-27 16:14] LABS: Apolipoprotein E Genotype E3/E3
== END 2025-02-21 10:53 | disposition home or self-care (01) ==
LOC: HO.LAB 10:52
PROVIDERS: PCP Family Medicine; Visit Provider Nurse Practitioner
DX: R41.3 Other amnesia (principal)
CPT/HCPCS: 36415; 82542; 82607